=== PATIENT | male | born 1945 | race Caucasian/White ===

== ENCOUNTER 2018-05-04 07:26 | Inpatient (IN) ==
[2018-05-04 07:56] LABS: Bilirubin,Urine Moderate (Negative); Clarity,Urine Slightly Cloudy (Clear); Color,Urine Yellow (Yellw/Straw); Glucose,Urine (UA) Negative (Negative); Leukocyte Esterase,Urine Negative (Negative); Nitrite,Urine Negative (Negative); PH,Urine 5.5 (5.0-8.5); Specific Gravity,Urine 1.025 (1.002-1.035); Urobilinogen,Urine 0.2 mg/dL (Less than 2)
[2018-05-04] MEDS ORDERED: Morphine Inj 4 MG/ML Vial IV.PUSH ONE ×2 (07:59→09:42)
[2018-05-04 08:02] LABS: Collection Time,Urine 746 hours; Ictotest,Urine Positive (Negative); RBC,Urine 0-3 /hpf (0-3); Squamous Epithelial Cell,Urine 0-5 /hpf (0-5)
[2018-05-04 08:03] LABS: Amorphous Sediment,Urine Few /hpf; Mucus,Urine Few /lpf (Occasional)
--- NOTE | 2018-05-04 08:03 | ED ---
HPI General Chief complaint: Abdominal Pain Stated complaint: Abd Pain x [place] Time Seen by Provider: 05/04/18 07:51 Source: patient Mode of arrival: ambulatory Limitations: no limitations History of Present Illness HPI narrative: 72yo M with PMH of CAD s/p CABG here with c/o abdominal pain for 4 days. Said he went to PMD 2 days ago and he ordered an MRCP as outpatient that he has not gotten yet. +Nausea and vomiting. +Chill/sweat. +Dysuria today. +Dark urine. No abdominal surgery. Had gallstone and kidney stone before. Denies any fever, chest pain, sob, focal weakness or numbness. + Drinks 3 glasses of wine a day. Related Data Home Medications Medication Instructions Recorded Confirmed alprazolam 0.25 mg PO BID PRN 03/24/18 05/04/18 aspirin [Aspirin Low Dose] 81 mg PO DAILY 03/24/18 05/04/18 atorvastatin 80 mg PO DAILY 03/24/18 05/04/18 clopidogrel 75 mg PO DAILY 03/24/18 05/04/18 cyanocobalamin (vitamin B-12) 1,000 mcg PO DAILY 03/24/18 05/04/18 fluoxetine 20 mg PO DAILY 03/24/18 05/04/18 ramipril 2.5 mg PO DAILY 03/24/18 05/04/18 temazepam 0 03/24/18 trazodone 100 mg PO DAILY 03/24/18 05/04/18 hyoscyamine sulfate 0.125 mg PO QID 05/04/18 05/04/18 pantoprazole 40 mg PO DAILY 05/04/18 05/04/18 Previous Rx's Medication Instructions Recorded tramadol [Ultram] 50 mg PO Q4-6H #20 tab 03/24/18 Allergies Allergy/AdvReac Type Severity Reaction Status Date / Time No Known Allergies Allergy Verified 05/04/18 07:45 Review of Systems ROS: all other systems reviewed are negative [facility] Social History Social History Substance History: No History of Abuse Second Hand Smoke Exposure: No Smoking Status: Former smoker Tobacco Type: Cigarettes How Often Do You Have a Drink Containing Alcohol: 4 or more times a week Recent Travel in [facility] within the Last 8 Weeks: No Recent Out of Country Travel within the Last 8 Weeks: No Exam Narrative Exam Narrative: GENERAL: 72yo M in mild distress. SKIN: Focused skin assessment warm/dry. HEAD: Atraumatic. Normocephalic. EYES: Pupils equal and round. No scleral icterus. No injection or drainage. ENT: No nasal bleeding or discharge. Mucous membranes pink and moist. NECK: Trachea midline. No JVD. CARDIOVASCULAR: Regular rate and rhythm. No murmur appreciated. RESPIRATORY: No accessory muscle use. Clear to auscultation. Breath sounds equal bilaterally. GASTROINTESTINAL: Abdomen soft, +TTP RUQ, LUQ, RLQ, LLQ. No rebound tenderness or guarding. MUSCULOSKELETAL: No obvious deformities. No clubbing. No cyanosis. No edema. NEUROLOGICAL: Awake and alert. No obvious cranial nerve deficits. Motor grossly within normal limits in all extremities. Sensation intact. Normal speech. PSYCHIATRIC: Appropriate mood and affect; insight and judgment normal. Course Initial Documented Vital Signs Temperature 97.8 F 05/04/18 07:33 Pulse Rate 69 05/04/18 07:33 Respiratory Rate 18 05/04/18 07:33 Blood Pressure 112/73 05/04/18 07:33 Pulse Oximetry 98 05/04/18 07:33 Last Documented Vital Signs Temperature 97.8 F 05/04/18 08:01 Pulse Rate 69 05/04/18 08:01 Respiratory Rate 18 05/04/18 08:01 Blood Pressure 112/73 05/04/18 08:01 Pulse Oximetry 98 05/04/18 08:01 Critical Care Time Critical Care Time: Yes Total Critical Care Time: 45 Attestation: Aggregate critical care time was 45 minutes. Time to perform other separately billable procedures was not included in the critical care time. My time did not include minutes spent treating any other patients simultaneously or on activities that did not directly contribute to the patient's treatment. The services I provided to this patient were to treat and/or prevent clinically significant deterioration that could result in: cardiovascular collapse or . I provided critical care services requiring my management, as noted below: Chart data review, documentation time, medication orders and management, vital sign assessments/reviewing monitor data, ordering and reviewing lab tests, ordering and interpreting/reviewing x-rays and diagnostic studies, care of the patient and discussion of the patient with the admitting physicians. Medical Decision Making MDM Narrative Medical decision making narrative: 72yo M with abdominal pain and vomiting. Labs reviewed, no leukocytosis. H/H normal. BUN mildly elevated at 20. Lipase elevated at 9714. LFTs elevated. UA negative leukocyte. CT a/p showed stone in neck of gallbladder, dilated common bile duct up to 8mm, at least one tiny stone in distal common bile duct. +Pericholecystitc fluid and gallbladder wall thickening. Pt given zofran and morphine. Will need GI and likely ERCP. Reevaluated at bedside and said pain has improved after morphine but returning so ordered another dose of morphine. Discussed with Dr. Pereira who agrees and pt is to be transferred to [facility]. Discussed with Dr. Crooks and accepted to his service. Medical Screen Exam Complete: Yes Emergency Medical Condition: Yes Differential Diagnosis Differential Diagnosis: Acute pancreatitis vs. cholangitis vs. cholecystitis vs. nephrolithiasis vs. colitis Lab Data Result diagrams: 05/04/18 08:15 05/04/18 08:15 Lab Results 05/04/18 05/04/18 05/04/18 Range/Units 07:46 08:15 08:15 CBC w Diff Auto diff final WBC 7.2 (4.0-11.0) th/mm3 RBC 4.98 (4.50-5.90) mil/mm3 Hgb 16.1 (13.0-17.0) gm/dL Hct 45.6 (39.0-51.0) % MCV 91.6 (80.0-100.0) fL MCH 32.3 (27.0-34.0) pg MCHC 35.3 (32.0-36.0) % RDW 13.4 (11.6-17.2) % Plt Count 187 (150-450) th/mm3 MPV 8.0 (7.0-11.0) fL Neut % (Auto) 77.0 H (16.0-70.0) % Lymph % (Auto) 12.1 (9.0-44.0) % [place] % (Auto) 9.1 H (0.0-8.0) % Eos % (Auto) 0.7 (0.0-4.0) % Baso % (Auto) 1.1 (0.0-2.0) % Neut # (Auto) 5.4 (1.8-7.7) th/mm3 Lymph # (Auto) 0.9 L (1.0-4.8) th/mm3 [place] # (Auto) 0.7 (0.0-0.9) th/mm3 Eos # (Auto) 0.1 (0.0-0.4) th/mm3 Baso # (Auto) 0.1 (0.0-0.2) th/mm3 WBC Differential . Differential Comment . Sodium 138 (136-145) meq/L Potassium 4.0 (3.5-5.1) meq/L Chloride 105 (98-107) meq/L Carbon Dioxide 25.9 (21.0-32.0) meq/L Anion Gap 7 (5-15) meq/L BUN 20 H (7-18) mg/dL Creatinine 1.10 (0.60-1.30) mg/dL Estimated GFR 65 L (>89) mL/min Random Glucose 122 H (74-106) mg/dL Calcium 8.7 (8.5-10.1) mg/dL Total Bilirubin 3.0 H (0.2-1.0) mg/dL AST 108 H (15-37) U/L ALT 254 H (12-78) U/L Alkaline Phosphatase 135 H (45-117) U/L Total Protein 7.3 (6.4-8.2) g/dL Albumin 3.6 (3.4-5.0) g/dL Lipase 9714 H (73-393) U/L Ur Collection Type Clean catch Urine Color Yellow (Yellw/Straw) Urine Clarity Slightly cloudy (Clear) Urine pH 5.5 (5.0-8.5) Ur Specific [place] 1.025 (1.002-1.035) Urine Protein Trace (Neg-Trace) mg/dL Urine Glucose (UA) Negative (Negative) mg/dL Urine Ketones Trace H (Negative) mg/dL Urine Occult Blood Small H (Negative) Urine Nitrate Negative (Negative) Urine Bilirubin Moderate H (Negative) Urine Ictotest Positive H (Negative) Urine Urobilinogen 0.2 (Less than 2) mg/dL Ur Leukocyte Esterase Negative (Negative) Urine RBC 0-3 (0-3) /hpf Ur Squamous Epith Cells 0-5 (0-5) /hpf Amorphous Sediment Few H (None) /hpf Urine Mucus Few H (Occasional) /lpf Micro UA Comment Culture not ind Ur Microscopic Review Microscopic reviewed Urine Culture Comments Culture not ind Urine Collection Time 746 hours Urine Comment Serum Alcohol Less than 3 (0-5) mg/dL Imaging Data Radiologist's impression: Abdomen/Pelvis CT 05/04/18 07:59 CONCLUSION: 1. Cholecystitis. 2. Cholelithiasis. 3. Diffuse atherosclerosis with moderate stenosis of the right common iliac artery which is mildly prominent in caliber as well as occlusion of the right internal iliac artery at its origin. 4. Containing umbilical hernia. 5. Prominent prostate. 6. Choledocholithiasis. ECG Data EKG Prior to Arrival: No Attestation: I personally reviewed and interpreted this ECG as follows: Interpretation: Sinus bradycardia at 51bpm. Normal axis. [place] interval 166ms. No significant ST elevation or depression. Discharge Plan Discharge Disposition Patient Disposition: 30 Still Patient Discharge Details Diagnosis: Acute gallstone pancreatitis Physicians Team ED Provider: Rochelle Keene Primary Care Provider: Luis Fernando Faulkner Attending Provider: Becky Crooks Other Providers: Theresa Richardson Status ED Status: Admitted Patient
[2018-05-04 08:19] LABS: Baso # (Auto) 0.1 th/mm3 (0.0-0.2); Baso % (Auto) 1.1 % (0.0-2.0); Eos # (Auto) 0.1 th/mm3 (0.0-0.4); Eos % (Auto) 0.7 % (0.0-4.0); Hematocrit 45.6 % (39.0-51.0); Hemoglobin 16.1 gm/dL (13.0-17.0); Lymph # (Auto) 0.9 th/mm3 (1.0-4.8); Lymph % (Auto) 12.1 % (9.0-44.0); Mean Corpuscular HGB Conc 35.3 % (32.0-36.0); Mean Corpuscular Hemoglobin 32.3 pg (27.0-34.0); Mean Corpuscular Volume 91.6 fL (80.0-100.0); Mono # (Auto) 0.7 th/mm3 (0.0-0.9); Mono % (Auto) 9.1 % (0.0-8.0); Neut # (Auto) 5.4 th/mm3 (1.8-7.7); Platelet Count 187 th/mm3 (150-450); Red Blood Count 4.98 mil/mm3 (4.50-5.90); Red Cell Distribution Width 13.4 % (11.6-17.2); White Blood Count 7.2 th/mm3 (4.0-11.0)
[2018-05-04 08:30] LABS: Chloride 105 meq/L (98-107); Sodium 138 meq/L (136-145)
[2018-05-04 08:34] LABS: Calcium 8.7 mg/dL (8.5-10.1)
[2018-05-04 08:35] LABS: Albumin 3.6 g/dL (3.4-5.0); Anion Gap 7 meq/L (5-15); Blood Urea Nitrogen 20 mg/dL (7-18); Carbon Dioxide 25.9 meq/L (21.0-32.0); Glucose,Random 122 mg/dL (74-106)
[2018-05-04 08:37] LABS: Alanine Aminotransferase 254 U/L (12-78); Aspartate Aminotransferase 108 U/L (15-37)
[2018-05-04 08:38] LABS: Glomerular Filtration Rate 65 mL/min (>89)
[2018-05-04 08:39] LABS: Total Protein 7.3 g/dL (6.4-8.2)
[2018-05-04 08:40] LABS: Alkaline Phosphatase 135 U/L (45-117); Lipase 9714 U/L (73-393)
--- NOTE | 2018-05-04 09:24 | CT ---
EXAM DATE: 05/04/2018 9:15 AM EST AGE/SEX: 72 years / Male INDICATIONS: Abdomen pain CLINICAL DATA: This is the patient's initial encounter. Patient reports that signs and symptoms have been present for 4 - 6 days and indicates a pain score of 10/10. MEDICAL/SURGICAL HISTORY: Hypertension. . Open heart surgery ORAL CONTRAST: No oral contrast ingested. RADIATION DOSE: 13.53 CTDI (mGy) COMPARISON: [facility], CT ABDOMEN & PELVIS W/O CONTRAST, 01/30/2013. . TECHNIQUE: Multiple contiguous axial images were obtained through the abdomen and pelvis following b olus infusion of 95ML ml Omnipaque 350 (iohexol) nonionic water-soluble contrast as a single exam d ose. No oral contrast ingested. Using automated exposure control and adjustment of the mA and/or kV according to patient size, radiation dose was kept as low as reasonably achievable to obtain optimal diagnostic quality images. DICOM format image data is available electronically for review and compar mariana. FINDINGS: There are degenerative changes of the spine noted. Lung bases are clear. There is cardiomegaly and co ronary artery calcification. Cholelithiasis is identified. There is abnormal gallbladder wall thicken ing, mucosal enhancement and pericholecystic fluid with a stone in the neck of the gallbladder. The a ppearance is characteristic of cholecystitis. There is pericholecystic fat stranding. Liver, spleen, pancreas, adrenals and kidneys are unremarkable. Atherosclerotic plaquing of the aorta and iliac vess els are seen. There is 50% stenosis suspected of the right common iliac artery with ulcerated plaque seen, and mild aneurysmal dilatation up to 1.6 cm. There are internal iliac artery on the right is oc cluded at its origin with distal reconstitution suspected, diminutive. The prostate gland is prominen t measuring 5.3 x 4 cm in transverse and AP dimension. No evidence of bowel obstruction. Stomach, sma ll bowel, large bowel are normal. Small fat-containing umbilical hernia. Retroaortic left renal vein. The common bile duct measures up to 8 mm, and there is at least one tiny stone in the distal common bile duct best seen on coronal image 46 CONCLUSION: 1. Cholecystitis. 2. Cholelithiasis. 3. Diffuse atherosclerosis with moderate stenosis of the right common iliac artery which is mildly p rominent in caliber as well as occlusion of the right internal iliac artery at its origin. 4. Containing umbilical hernia. 5. Prominent prostate. 6. Choledocholithiasis. Electronically signed by: Mark Acuna MD 05/04/2018 9:23 AM EST
--- NOTE | 2018-05-04 09:56 | ECG ---
Date Performed: 05/04/2018 Time Performed: 08:09:45 PTAGE: 72 years EKG: SINUS BRADYCARDIA INCOMPLETE RIGHT BUNDLE BRANCH BLOCK BORDERLINE ECG Compared to prior alejandro ctrocardiogram, Incomplete right bundle branch block is present. PREVIOUS TRACING : 05/21/2016 19.31 DOCTOR: Mayur Becerra Interpretating Date/Time 05/04/2018 09:55:27
[2018-05-04] MEDS ORDERED: Bisacodyl 10 MG Supp RECTAL PRN (10:07)
[2018-05-04] MEDS ORDERED: Acetaminophen 325 MG Tablet PO PRN (10:07)
[2018-05-04] MEDS ORDERED: HYDROmorphone PF Inj 0.5 MG/0.5 ML Syringe IV.PUSH PRN (10:11)
[2018-05-04] MEDS ORDERED: Sod Chloride 0.9% Inj 1,000 ML IV.SIG SCH (10:15)
[2018-05-04] MEDS: Enoxaparin Inj 40 MG/0.4 ML Syringe SQ SCH (11:42)
--- NOTE | 2018-05-04 12:44 | P.HP ---
History of Present Illness Primary Care Physician: Luis Fernando Faulkner MD Chief Complaint: Abdominal pain History of Present Illness: This is a pleasant 72 y/o Male with CAD status post CABG x 6, who came to ER at [facility] with Abdominal pain, for 4 days, Said he went to see his PCP 2 days ago and he ordered an MRCP as outpatient that he has not gotten yet. +Nausea and vomiting. +Chill/sweat. +Dysuria today. +Dark urine. No abdominal surgery. Had gallstone and kidney stone before. Denies any fever, chest pain, sob, focal weakness or numbness. +Drinks 3 glasses of wine a day. as We know he has Hypertension, Hyperlipidemia Vitamin B 12 deficiency, Anxiety, depression, Alcohol abuse. No leukocytosis, Lipase elevated 9714, LFTs elevated, UA negative, CT a/p showed stone in neck of gallbladder, dilated common bile duct up to 8mm, at least one tiny stone in distal common bile duct. +Pericholecystitc fluid and gallbladder wall thickening. Doctor Dylan accepted the patient for this facility to perform ERCP. Inpatient Certification: I certify that the inpatient services were ordered in accordance with Medicare regulations governing the order. This includes certification that hospital inpatient services are reasonable and necessary and in the case of services not specified as inpatient-only under 42 CFR 419.22(n), that they are appropriately provided as inpatient services in accordance to with the 2-midnight benchmark under 43 CFR 412.3(e) Estimated Total Length of Stay (Days): 3 Plans for Post Hospital Care: Not yet determined Review of Systems All other systems reviewed negative except as stated in [facility] [place] History History Provided By: Patient - Medical History Medical History: Medical History (Last Updated 05/04/18 @ 12:40 by Luisito Owens MD) Vitamin B12 deficiency History of high cholesterol Hx of primary hypertension - Surgical History Surgical History: Surgical History (Last Reviewed 05/04/18 @ 12:19 by Selene Soriano) History of open heart surgery - Family History Family History: Family History (Last Updated 05/04/18 @ 16:31 by Luisito Owens MD) Father Family history of acute myocardial infarction - Tobacco History Second Hand Smoke Exposure: No Tobacco Use In Past 30 Days: No Smoking Status: Former smoker Tobacco Type: Cigarettes - Alcohol History How Often Do You Have a Drink Containing Alcohol: 4 or more times a week - Substance Use History Substance History: No History of Abuse - Travel History Recent Travel in the [place] Within the Last 8 Weeks: No Recent Travel Out of the Country Within the Last 8 Weeks: No - Immunization History Tetanus Immunization: Never Vaccinated Hx Influenza Vaccine This Season: Yes Medications and Allergies Active Medications: Active Medications Acetaminophen (Tylenol) 650 mg PO Q4H PRN PRN Reason: Headache, fever, pain 1-4 Al Hydroxide/Mg Hydroxide (Milk Of Magnesia Liq) 30 ml PO Q12H PRN PRN Reason: Mild Constipation Bisacodyl (Dulcolax Supp) 10 mg RECTAL DAILY PRN PRN Reason: SEVERE CONSITIPATION Enoxaparin Sodium (Lovenox Inj) 40 mg SQ Q24H CANDIDO Last Admin: 05/04/18 11:42 Dose: 40 mg Hydromorphone HCl (Dilaudid Pf Inj) 0.5 mg IV.PUSH Q4H PRN PRN Reason: Pain 5-10 Sodium Chloride (Ns Inj) 1,000 mls @ 200 mls/hr IV.CONT .Q5H CANDIDO Stop: 05/05/18 10:59 Lactulose (Lactulose Liq) 30 ml PO DAILY PRN PRN Reason: SEVERE CONSITIPATION Sennosides (Senokot) 17.2 mg PO Q12H PRN PRN Reason: Moderate Constipation Allergies Allergy/AdvReac Type Severity Reaction Status Date / Time No Known Allergies Allergy Verified 05/04/18 07:45 Home Medications Medication Instructions Recorded Confirmed Type alprazolam 0.25 mg PO BID PRN 03/24/18 05/04/18 History aspirin [Aspirin Low Dose] 81 mg PO DAILY 03/24/18 05/04/18 History atorvastatin 80 mg PO DAILY 03/24/18 05/04/18 History clopidogrel 75 mg PO DAILY 03/24/18 05/04/18 History cyanocobalamin (vitamin B-12) 1,000 mcg PO DAILY 03/24/18 05/04/18 History fluoxetine 20 mg PO DAILY 03/24/18 05/04/18 History ramipril 2.5 mg PO DAILY 03/24/18 05/04/18 History temazepam 0 03/24/18 History trazodone 100 mg PO DAILY 03/24/18 05/04/18 History hyoscyamine sulfate 0.125 mg PO QID 05/04/18 05/04/18 History pantoprazole 40 mg PO DAILY 05/04/18 05/04/18 History Exam Vital signs: Vital Signs 05/04/18 07:33 05/04/18 08:01 05/04/18 11:40 Temperature 97.8 F 97.8 F Pulse Rate 69 69 50 L Respiratory Rate 18 18 16 Blood Pressure 112/73 112/73 132/65 Pulse Oximetry 98 98 96 Intake & Output 05/03/18 05/04/18 05/04/18 18:59 06:59 18:59 Weight 82.1 kg Other: Weight On Admission 82.1 kg Narrative: GENERAL: 72yo M in mild distress. SKIN: Focused skin assessment warm/dry. HEAD: Atraumatic. Normocephalic. EYES: Pupils equal and round. No scleral icterus. No injection or drainage. ENT: No nasal bleeding or discharge. Mucous membranes pink and moist. NECK: Trachea midline. No JVD. CARDIOVASCULAR: Regular rate and rhythm. No murmur appreciated. RESPIRATORY: No accessory muscle use. Clear to auscultation. Breath sounds equal bilaterally. GASTROINTESTINAL: Abdomen soft, +TTP RUQ, LUQ, RLQ, LLQ. No rebound tenderness or guarding. MUSCULOSKELETAL: No obvious deformities. No clubbing. No cyanosis. No edema. NEUROLOGICAL: Awake and alert. No obvious cranial nerve deficits. Motor grossly within normal limits in all extremities. Sensation intact. Normal speech. PSYCHIATRIC: Appropriate mood and affect; insight and judgment normal. Results - Labs CBC & Chem 7: 05/04/18 08:15 05/04/18 08:15 Labs: Laboratory Results - last 24 hr 05/04/18 05/04/18 05/04/18 07:46 08:15 08:15 CBC w Diff Auto diff final WBC 7.2 RBC 4.98 Hgb 16.1 Hct 45.6 MCV 91.6 MCH 32.3 MCHC 35.3 RDW 13.4 Plt Count 187 MPV 8.0 Neut % (Auto) 77.0 H Lymph % (Auto) 12.1 [place] % (Auto) 9.1 H Eos % (Auto) 0.7 Baso % (Auto) 1.1 Neut # (Auto) 5.4 Lymph # (Auto) 0.9 L [place] # (Auto) 0.7 Eos # (Auto) 0.1 Baso # (Auto) 0.1 WBC Differential . Differential Comment . Sodium 138 Potassium 4.0 Chloride 105 Carbon Dioxide 25.9 Anion Gap 7 BUN 20 H Creatinine 1.10 Estimated GFR 65 L Random Glucose 122 H Calcium 8.7 Total Bilirubin 3.0 H AST 108 H ALT 254 H Alkaline Phosphatase 135 H Total Protein 7.3 Albumin 3.6 Lipase 9714 H Ur Collection Type Clean catch Urine Color Yellow Urine Clarity Slightly cloudy Urine pH 5.5 Ur Specific [place] 1.025 Urine Protein Trace Urine Glucose (UA) Negative Urine Ketones Trace H Urine Occult Blood Small H Urine Nitrate Negative Urine Bilirubin Moderate H Urine Ictotest Positive H Urine Urobilinogen 0.2 Ur Leukocyte Esterase Negative Urine RBC 0-3 Ur Squamous Epith Cells 0-5 Amorphous Sediment Few H Urine Mucus Few H Micro UA Comment Culture not ind Ur Microscopic Review Microscopic reviewed Urine Culture Comments Culture not ind Urine Collection Time 746 Urine Comment Serum Alcohol Less than 3 - Imaging Impressions Abdomen/Pelvis CT 05/04/18 07:59 CONCLUSION: 1. Cholecystitis. 2. Cholelithiasis. 3. Diffuse atherosclerosis with moderate stenosis of the right common iliac artery which is mildly prominent in caliber as well as occlusion of the right internal iliac artery at its origin. 4. Containing umbilical hernia. 5. Prominent prostate. 6. Choledocholithiasis. Caprini VTE Risk Assessment Caprini VTE Risk Assessment: Moderate/High Risk (score >= 2) Caprini Risk Assessment Model: Point Value = 1 Point Value = 2 Point Value = 3 Point Value = 5 Age 41-60 Minor surgery BMI > 25 kg/m2 Swollen legs Varicose veins or History of unexplained or recurrent spontaneous Oral contraceptives or hormone replacement Sepsis (< 1 month) Serious lung disease, including pneumonia (< 1 month) Abnormal pulmonary function Acute myocardial infarction Congestive heart failure (< 1 month) History of inflammatory bowel disease Medical patient at bed rest Age 61-74 Arthroscopic surgery Major open surgery (> 45 min) Laparoscopic surgery (> 45 min) Malignancy Confined to bed (> 72 hours) Immobilizing plaster cast Central venous access Age >= 75 History of VTE Family history of VTE Factor V Leiden Prothrombin [id number] Lupus anticoagulant Anticardiolipin antibodies Elevated serum homocysteine Heparin-induced thrombocytopenia Other congenital or acquired thrombophilia Stroke (< 1 month) Elective arthroplasty Hip, pelvis, or leg fracture Acute spinal cord injury (< 1 month) Prophylaxis Regimen: Total Risk Factor Score Risk Level Prophylaxis Regimen 0-1 Low Early ambulation 2 Moderate Order ONE of the following: *Sequential Compression Device (SCD) *Heparin 5000 units SQ BID 3-4 Higher Order ONE of the following medications: *Heparin 5000 units SQ TID *Enoxaparin/Lovenox 40 mg SQ daily (WT < 150 kg, CrCl > 30 mL/min) *Enoxaparin/Lovenox 30 mg SQ daily (WT < 150 kg, CrCl > 10-29 mL/min) *Enoxaparin/Lovenox 30 mg SQ BID (WT < 150 kg, CrCl > 30 mL/min) AND/OR *Sequential Compression Device (SCD) 5 or more Highest Order ONE of the following medications: *Heparin 5000 units SQ TID (Preferred with Epidurals) *Enoxaparin/Lovenox 40 mg SQ daily (WT < 150 kg, CrCl > 30 mL/min) *Enoxaparin/Lovenox 30 mg SQ daily (WT < 150 kg, CrCl > 10-29 mL/min) *Enoxaparin/Lovenox 30 mg SQ BID (WT < 150 kg, CrCl > 30 mL/min) AND *Sequential Compression Device (SCD) Assessment and Plan - Plan 1. Acute gallstone pancreatitis to continue IV fluids discussed with GI specialist will get MRCP and if any findings will proceed with ERCP tomorrow. 2. Coronary artery disease, status post CABG x 6/PCI with stenting in the past stable continue Home medicines 3. Hypertension controlled continue home medicines 4. Hyperlipidemia to continue Home medicines 5. Anxiety disorder/Depression to continue anxiolytics 6. Vitamin B 12 deficiency by history 7. Alcohol abuse no history of withdrawal CIWA protocol Prophylaxis. SCDs. Code Status: Full code. Discussed Condition With: Patient and Nurse. Discharge Planning: Expected in one to two days.
[2018-05-04] MEDS: HYDROmorphone PF Inj 1 MG/ML Ampul IV.PUSH PRN (15:08)
--- NOTE | 2018-05-04 15:57 | P.CONGI ---
History of Present Illness Consult reason: Abdominal pain, cholelithiasis Chief complaint: Choledocholithiasis, acute pancreatitis History of Present Illness: This is a 72-year-old male who initially came to [place] for evaluation of mid abdominal pain which radiated across abdomen to back. Onset of symptoms was 4 days ago with associated nausea and vomiting decreased appetite and uncontrolled pain 10 out of a 10. Patient was positive for some chills/fever, but denied any obvious hematemesis or rectal bleeding. Currently patient notes history of GERG and dyspepsia in the past but none recently. Labs reviewed which showed bilirubin 3, AST 108, ALT 254, alkaline phosphatase 135, hemoglobin 16.1, and white count 7.2 and lipase level 9714 consistent with pancreatitis. Initial CT scan showed cholecystitis, cholelithiasis, choledocholithiasis moderate stenosis of the right common iliac artery and umbilical hernia, dilated common bile duct up to 8 mm and at least one tiny stone seen in the distal common bile duct. Patient had positive family history of grandfather with colon cancer many years ago, no previous colonoscopy but did have endoscopy approximately 14 years ago and was treated for GERD then. Strongly neurology was consulted to see patient and transferred him to [place] for further observation and plan of care. [facility] - History History Provided By: Patient - Medical History Medical History: Medical History (Last Updated 05/04/18 @ 12:40 by Luisito Owens MD) Vitamin B12 deficiency History of high cholesterol Hx of primary hypertension - Surgical History Surgical History: Surgical History (Last Reviewed 05/04/18 @ 12:19 by Selene Soriano) History of open heart surgery - Tobacco History Second Hand Smoke Exposure: No Tobacco Use In Past 30 Days: No Smoking Status: Former smoker Tobacco Type: Cigarettes - Alcohol History How Often Do You Have a Drink Containing Alcohol: 4 or more times a week - Substance Use History Substance History: No History of Abuse - Travel History Recent Travel in the [place] Within the Last 8 Weeks: No Recent Travel Out of the Country Within the Last 8 Weeks: No - Immunization History Tetanus Immunization: Never Vaccinated Hx Influenza Vaccine This Season: Yes Medications and Allergies Active Medications: Active Medications Acetaminophen (Tylenol) 650 mg PO Q4H PRN PRN Reason: Headache, fever, pain 1-4 Al Hydroxide/Mg Hydroxide (Milk Of Magnesia Liq) 30 ml PO Q12H PRN PRN Reason: Mild Constipation Bisacodyl (Dulcolax Supp) 10 mg RECTAL DAILY PRN PRN Reason: SEVERE CONSITIPATION Enoxaparin Sodium (Lovenox Inj) 40 mg SQ Q24H [facility] Last Admin: 05/04/18 11:42 Dose: 40 mg Hydromorphone HCl (Dilaudid Pf Inj) 0.5 mg IV.PUSH Q4H PRN PRN Reason: Pain 5-10 Last Admin: 05/04/18 15:08 Dose: 0.5 mg Sodium Chloride (Ns Inj) 1,000 mls @ 100 mls/hr IV.CONT .Q10H [facility] Stop: 05/05/18 10:59 Lactulose (Lactulose Liq) 30 ml PO DAILY PRN PRN Reason: SEVERE CONSITIPATION Sennosides (Senokot) 17.2 mg PO Q12H PRN PRN Reason: Moderate Constipation Allergies Allergy/AdvReac Type Severity Reaction Status Date / Time No Known Allergies Allergy Verified 05/04/18 07:45 Home Medications Medication Instructions Recorded Confirmed Type alprazolam 0.25 mg PO BID PRN 03/24/18 05/04/18 History aspirin [Aspirin Low Dose] 81 mg PO DAILY 03/24/18 05/04/18 History atorvastatin 80 mg PO DAILY 03/24/18 05/04/18 History clopidogrel 75 mg PO DAILY 03/24/18 05/04/18 History cyanocobalamin (vitamin B-12) 1,000 mcg PO DAILY 03/24/18 05/04/18 History fluoxetine 20 mg PO DAILY 03/24/18 05/04/18 History ramipril 2.5 mg PO DAILY 03/24/18 05/04/18 History temazepam 0 03/24/18 History trazodone 100 mg PO DAILY 03/24/18 05/04/18 History hyoscyamine sulfate 0.125 mg PO QID 05/04/18 05/04/18 History pantoprazole 40 mg PO DAILY 05/04/18 05/04/18 History Exam Vital signs: Vital Signs 05/04/18 07:33 05/04/18 08:01 05/04/18 11:40 Temperature 97.8 F 97.8 F Pulse Rate 69 69 50 L Respiratory Rate 18 18 16 Blood Pressure 112/73 112/73 132/65 Pulse Oximetry 98 98 96 05/04/18 14:25 Temperature 98.2 F Pulse Rate 56 L Respiratory Rate 17 Blood Pressure 143/65 H Pulse Oximetry 98 Intake & Output 05/03/18 05/04/18 05/04/18 18:59 06:59 18:59 Weight 82.1 kg Other: Weight On Admission 82.1 kg Results - Labs CBC & Chem 7: 05/04/18 08:15 05/04/18 08:15 Labs: Laboratory Results - last 24 hr 05/04/18 05/04/18 05/04/18 07:46 08:15 08:15 CBC w Diff Auto diff final WBC 7.2 RBC 4.98 Hgb 16.1 Hct 45.6 MCV 91.6 MCH 32.3 MCHC 35.3 RDW 13.4 Plt Count 187 MPV 8.0 Neut % (Auto) 77.0 H Lymph % (Auto) 12.1 [place] % (Auto) 9.1 H Eos % (Auto) 0.7 Baso % (Auto) 1.1 Neut # (Auto) 5.4 Lymph # (Auto) 0.9 L [place] # (Auto) 0.7 Eos # (Auto) 0.1 Baso # (Auto) 0.1 WBC Differential . Differential Comment . Sodium 138 Potassium 4.0 Chloride 105 Carbon Dioxide 25.9 Anion Gap 7 BUN 20 H Creatinine 1.10 Estimated GFR 65 L Random Glucose 122 H Calcium 8.7 Total Bilirubin 3.0 H AST 108 H ALT 254 H Alkaline Phosphatase 135 H Total Protein 7.3 Albumin 3.6 Lipase 9714 H Ur Collection Type Clean catch Urine Color Yellow Urine Clarity Slightly cloudy Urine pH 5.5 Ur Specific [place] 1.025 Urine Protein Trace Urine Glucose (UA) Negative Urine Ketones Trace H Urine Occult Blood Small H Urine Nitrate Negative Urine Bilirubin Moderate H Urine Ictotest Positive H Urine Urobilinogen 0.2 Ur Leukocyte Esterase Negative Urine RBC 0-3 Ur Squamous Epith Cells 0-5 Amorphous Sediment Few H Urine Mucus Few H Micro UA Comment Culture not ind Ur Microscopic Review Microscopic reviewed Urine Culture Comments Culture not ind Urine Collection Time 746 Urine Comment Serum Alcohol Less than 3 - Imaging Impressions Abdomen/Pelvis CT 05/04/18 07:59 CONCLUSION: 1. Cholecystitis. 2. Cholelithiasis. 3. Diffuse atherosclerosis with moderate stenosis of the right common iliac artery which is mildly prominent in caliber as well as occlusion of the right internal iliac artery at its origin. 4. Containing umbilical hernia. 5. Prominent prostate. 6. Choledocholithiasis. Assessment and Plan - Plan 72-year-old male who initially came to [place] for evaluation of mid abdominal pain which radiated across abdomen to back. Onset of symptoms was 4 days ago with associated nausea and vomiting decreased appetite and uncontrolled pain 10 out of a 10. Patient was positive for some chills/fever, but denied any obvious hematemesis or rectal bleeding. Currently patient notes history of GERG and dyspepsia in the past but none recently. Labs reviewed which showed bilirubin 3, AST 108, ALT 254, alkaline phosphatase 135, hemoglobin 16.1, and white count 7.2 and lipase level 9714 consistent with pancreatitis. Initial CT scan showed cholecystitis, cholelithiasis, choledocholithiasis, moderate stenosis of the right common iliac artery and umbilical hernia, dilated common bile duct up to 8 mm and at least one tiny stone seen in the distal common bile duct. Patient had positive family history of grandfather with colon cancer many years ago, no previous colonoscopy but did have endoscopy approximately 14 years ago and was treated for GERD then. Strongly neurology was consulted to see patient and transferred him to [place] for further observation and plan of care. Cholecystitis, compatible with abdominal pain right mid and left quadrants radiating to the back region Choledocholithiasis also associated with #1 and abdominal pain, common bile duct dilatation 8 mm with stones seen History of GERD, currently denies any dyspepsia or dysphasia, had EGD approximately 14 years ago and was initially treated for GERD but no meds now, positive family history grandfather colon cancer, no previous colonoscopy Nausea vomiting decreased appetite over the last 4 days consistent with #1 and # 2 Hyperbilirubinemia/transaminitis, could be related to gallbladder disease versus hepatocellular disease patient is a daily alcohol consumption Plan Diet, clear liquids for now as tolerated per attending MRCP today, based on findings plan for Consent for ERCP in a.m. Bowel regimen as needed, pain management per attending Monitor labs, monitor lipase level AFP level Further recommendations to follow Patient was seen per myself and Dr. Kelley, note was written on his behalf
[2018-05-04] MEDS: Sod Chloride 0.9% Inj 1,000 ML IV.CONT SCH (16:18)
--- NOTE | 2018-05-04 18:54 | MR ---
EXAM DATE: 05/04/2018 5:45 PM EST AGE/SEX: 72 years / Male INDICATIONS: Cholelithiasis. CLINICAL DATA: This is the patient's initial encounter. Patient reports that signs and symptoms have been present for 1 day and indicates a pain score of 0/10. MEDICAL/SURGICAL HISTORY: Hypertension. Hypercholesterolemia. CABG. Coronary artery stent. COMPARISON: No prior exams available for comparison. TECHNIQUE: Multiplanar, multisequence images of the abdomen were obtained without contrast including dedicated cholangiographic images. FINDINGS: Common bile duct measures about 8 mm in diameter. There is a 3 mm stone in the distal common bile oseas t and probably 2 additional tiny gallstones also in the distal common bile duct. These are best seen on the coronal images #16 of 30 and axial T2 images #22 of 32. There are numerous tiny gallstones within the gallbladder. There is pericholecystic fluid present No acute findings in the liver, spleen, adrenals, kidneys or pancreas. No free fluid. Pancreatic duct has normal caliber. There is dependent atelectasis in the lungs and trace fluid. CONCLUSION: 1. Several tiny gallstones present in the distal common bile duct measuring up to about 3 mm in diam eter. 2. Numerous gallstones with pericholecystic fluid present. This is nonspecific but can be associated with cholecystitis. 3. Dependent atelectasis in the lungs with trace pleural fluid. Electronically signed by: Domingo Barnhart MD 05/04/2018 6:53 PM EST
[2018-05-05] MEDS: Sod Chloride 0.9% Inj 1,000 ML IV.CONT SCH ×2 (01:00→07:48)
[2018-05-05] MEDS: HYDROmorphone PF Inj 1 MG/ML Ampul IV.PUSH PRN (03:42)
[2018-05-05 06:16] LABS: Baso % (Auto) 0.3 % (0.0-2.0); Eos % (Auto) 0.7 % (0.0-4.0); Hematocrit 40.3 % (39.0-51.0); Hemoglobin 14.5 gm/dL (13.0-17.0); Lymph # (Auto) 0.8 th/mm3 (1.0-4.8); Lymph % (Auto) 10.8 % (9.0-44.0); Mean Corpuscular Hemoglobin 33.2 pg (27.0-34.0); Mean Platelet Volume 8.2 fL (7.0-11.0); Mono # (Auto) 0.8 th/mm3 (0.0-0.9); Mono % (Auto) 11.6 % (0.0-8.0); Neut # (Auto) 5.4 th/mm3 (1.8-7.7); Neut % (Auto) 76.6 % (16.0-70.0); Platelet Count 148 th/mm3 (150-450); Red Blood Count 4.38 mil/mm3 (4.50-5.90); Red Cell Distribution Width 13.5 % (11.6-17.2); White Blood Count 7.1 th/mm3 (4.0-11.0)
[2018-05-05 06:44] LABS: Albumin 3.5 g/dL (3.4-5.0); Anion Gap 8 meq/L (5-15); Aspartate Aminotransferase 55 U/L (15-37); Blood Urea Nitrogen 16 mg/dL (7-18); Calcium 8.2 mg/dL (8.5-10.1); Carbon Dioxide 28.5 meq/L (21.0-32.0); Chloride 105 meq/L (98-107); Glomerular Filtration Rate Greater Than 89 mL/min (>89); Glucose,Random 94 mg/dL (74-106); Potassium 3.3 meq/L (3.5-5.1); Sodium 141 meq/L (136-145)
[2018-05-05 06:48] LABS: Alanine Aminotransferase 166 U/L (12-78); Alkaline Phosphatase 107 U/L (45-117); Total Protein 6.6 g/dL (6.4-8.2)
--- NOTE | 2018-05-05 10:26 | P.PNIM ---
Subjective Interval history: Patient seen and examined this morning. Afebrile vital signs stable. Patient reports that his pain is tolerable at this time. He understands again plan for the day is to have performed an ERCP. He is in good spirits and hopeful that this procedure will go well for him. Patient has no complaints to report at this time Physical Exam Vital signs: Vital Signs 05/04/18 11:40 05/04/18 14:25 05/04/18 16:15 Temperature 98.2 F 97.6 F Pulse Rate 50 L 56 L 58 L Respiratory Rate 16 17 18 Blood Pressure 132/65 143/65 H 139/74 Pulse Oximetry 96 98 94 L 05/04/18 20:00 05/04/18 20:41 05/05/18 00:00 Temperature 98.3 F 98.2 F Pulse Rate 57 L 59 L Respiratory Rate 18 18 18 Blood Pressure 132/69 132/62 Pulse Oximetry 95 95 05/05/18 01:30 05/05/18 04:00 05/05/18 08:00 Temperature 97.7 F 98.2 F Pulse Rate 52 L 52 L Respiratory Rate 17 18 16 Blood Pressure 133/64 122/58 L Pulse Oximetry 96 92 L Intake & Output 05/04/18 05/05/18 05/05/18 18:59 06:59 18:59 Intake Total 1120 / 1120 Balance 1120 / 1120 Weight 82.1 kg 85 kg Intake: Oral 1120 / 1120 Other: # Voids 2 5 Date of Last Bowel Movement 05/01/18 05/01/18 05/01/18 Weight On Admission 82.1 kg Narrative: GEN: Well-developed, well-nourished patient. No acute distress. CV: Regular rate and rhythm without obvious murmurs LUNGS: Clear to auscultation bilaterally. Normal respiratory effort. No wheezes , rales, rhonchi. GI: Soft, nontender, nondistended. No palpable masses. Bowel sounds WNL. EXT: No edema. NEURO/PSYCH: Afocal. Awake, alert, and oriented x3. Appropriate insight and judgment. Results - Labs CBC & Chem 7: 05/05/18 05:11 05/05/18 05:11 Laboratory Results - last 24 hr 05/04/18 05/05/18 05/05/18 18:30 05:11 05:11 WBC 7.1 RBC 4.38 L Hgb 14.5 Hct 40.3 MCV 92.0 MCH 33.2 MCHC 36.0 RDW 13.5 Plt Count 148 L MPV 8.2 Prelim Diff (Auto) Slide review pending Neut % (Auto) 76.6 H Lymph % (Auto) 10.8 [place] % (Auto) 11.6 H Eos % (Auto) 0.7 Baso % (Auto) 0.3 Neut # (Auto) 5.4 Lymph # (Auto) 0.8 L [place] # (Auto) 0.8 Eos # (Auto) 0.0 Baso # (Auto) 0.0 WBC Differential . Diff Scan Auto diff confirmed Differential Comment . Sodium 141 Potassium 3.3 L Chloride 105 Carbon Dioxide 28.5 Anion Gap 8 BUN 16 Creatinine 0.75 Estimated GFR Greater than 89 Random Glucose 94 Calcium 8.2 L Total Bilirubin 2.0 H AST 55 H ALT 166 H Alkaline Phosphatase 107 Total Protein 6.6 D Albumin 3.5 Tumor Marker AFP 3.5 - Imaging Impressions Cholangiopancreatography MRI 05/04/18 00:00 CONCLUSION: 1. Several tiny gallstones present in the distal common bile duct measuring up to about 3 mm in diameter. 2. Numerous gallstones with pericholecystic fluid present. This is nonspecific but can be associated with cholecystitis. 3. Dependent atelectasis in the lungs with trace pleural fluid. Assessment and Plan - Assessment (1) Acute gallstone pancreatitis Code(s): K85.10 - Biliary acute pancreatitis without necrosis or infection Status: Acute - Plan 1. Acute gallstone pancreatitis to continue IV fluids discussed with GI specialist status post MRCP Patient is pending ERCP at this time. With likely anticipated cholecystectomy to be performed as an outpatient 2. Coronary artery disease, status post CABG x 6/PCI with stenting in the past stable continue Home medicines 3. Hypertension controlled continue home medicines 4. Hyperlipidemia to continue Home medicines 5. Anxiety disorder/Depression to continue anxiolytics 6. Vitamin B 12 deficiency by history 7. Alcohol abuse no history of withdrawal CIWA protocol Prophylaxis. SCDs. Code Status: Full code Discussed Condition With: checking clerk Planning: Expected over the next couple days pending GI clearance
[2018-05-05] MEDS ORDERED: Ampicillin/Sulbactam Inj 3 GM in Sodium Chloride 0.9% Inj 100 ML IV.SIG ONE (11:00)
[2018-05-05] MEDS ORDERED: fentaNYL Citrate Inj 100 MCG/2 ML Ampul ONE (12:26)
[2018-05-05] MEDS ORDERED: Phenylephrine/NS 1000 MCG/10ML Syringe IV.PUSH ONE (12:39)
[2018-05-05] MEDS ORDERED: Succinylcholine Inj 100 MG/5 ML Syringe IV.PUSH ONE (12:39)
[2018-05-05] MEDS ORDERED: Lidocaine PF 1% Inj 5 ML Syringe OTHER ONE (12:39)
--- NOTE | 2018-05-05 13:49 | FL ---
EXAM DATE: 05/05/2018 1:45 PM EST AGE/SEX: 72 years / Male INDICATIONS: Obstruction, sphincterectomy and stone removal. CLINICAL DATA: This is the patient's initial encounter. Patient reports that signs and symptoms have been present for 1 day and indicates a pain score of Nonresponsive. MEDICAL/SURGICAL HISTORY: Non-responsive. Non-responsive. COMPARISON: [facility], MRCP W/O CONTRAST, 05/04/2018. . FINDINGS: An ERCP was performed by the ordering physician. The images demonstrate filling defects in the dista l common bile duct were noted characteristic of choledocholithiasis. CONCLUSION: Choledocholithiasis. Electronically signed by: Mark Acuna MD 05/05/2018 1:48 PM EST
[2018-05-05] MEDS: Enoxaparin Inj 40 MG/0.4 ML Syringe SQ SCH (14:00)
[2018-05-06 08:41] LABS: Baso % (Auto) 0.1 % (0.0-2.0); Eos % (Auto) 0.4 % (0.0-4.0); Hematocrit 37.9 % (39.0-51.0); Hemoglobin 13.6 gm/dL (13.0-17.0); Lymph # (Auto) 0.7 th/mm3 (1.0-4.8); Lymph % (Auto) 11.2 % (9.0-44.0); Mean Corpuscular HGB Conc 35.9 % (32.0-36.0); Mean Corpuscular Hemoglobin 33.4 pg (27.0-34.0); Mean Platelet Volume 8.2 fL (7.0-11.0); Mono # (Auto) 0.8 th/mm3 (0.0-0.9); Mono % (Auto) 11.5 % (0.0-8.0); Neut # (Auto) 5.1 th/mm3 (1.8-7.7); Neut % (Auto) 76.8 % (16.0-70.0); Platelet Count 149 th/mm3 (150-450); Red Blood Count 4.07 mil/mm3 (4.50-5.90); Red Cell Distribution Width 13.7 % (11.6-17.2); White Blood Count 6.7 th/mm3 (4.0-11.0)
[2018-05-06 09:05] LABS: Albumin 3.1 g/dL (3.4-5.0); Anion Gap 8 meq/L (5-15); Aspartate Aminotransferase 34 U/L (15-37); Blood Urea Nitrogen 12 mg/dL (7-18); Calcium 8.4 mg/dL (8.5-10.1); Carbon Dioxide 27.7 meq/L (21.0-32.0); Chloride 108 meq/L (98-107); Glomerular Filtration Rate Greater Than 89 mL/min (>89); Glucose,Random 120 mg/dL (74-106); Potassium 3.7 meq/L (3.5-5.1); Sodium 144 meq/L (136-145)
[2018-05-06 09:07] LABS: Alanine Aminotransferase 114 U/L (12-78)
[2018-05-06 09:08] LABS: Alkaline Phosphatase 92 U/L (45-117); Total Protein 6.3 g/dL (6.4-8.2)
[2018-05-06 09:16] VITALS: RESP 18
[2018-05-06] MEDS ORDERED: ALPRAZolam 0.25 MG Tablet PO PRN (09:29)
[2018-05-06] MEDS ORDERED: FLUoxetine 20 MG Capsule PO SCH (09:30)
[2018-05-06] MEDS ORDERED: Ramipril 2.5 MG Capsule PO SCH (09:30)
--- NOTE | 2018-05-06 09:38 | P.PN ---
Subjective Interval history: Follow up for acute gallstone pancreatitis. The patient is s/p ERCP yesterday. He reports feeling much better and wants to go home. He is tolerating liquid diet, wants to try more solid foods. Denies any abdominal pain, nausea/vomiting , or diarrhea. Had a BM yesterday. Denies fevers/chills. He is requesting his home meds be restarted. He has no other medical complaints at this time. Physical Exam Vital signs: Vital Signs 05/05/18 11:48 05/05/18 12:00 05/05/18 13:37 Temperature 98.8 F 98.8 F 98.6 F Pulse Rate 53 L 53 L 62 Respiratory Rate 16 16 16 Blood Pressure 136/63 136/83 145/75 H Pulse Oximetry 97 97 05/05/18 13:45 05/05/18 14:00 05/05/18 16:00 Temperature 98.7 F Pulse Rate 56 L 56 L 58 L Respiratory Rate 16 16 16 Blood Pressure 125/60 151/72 H 152/67 H Pulse Oximetry 95 95 96 05/05/18 19:07 05/06/18 00:15 05/06/18 01:00 Temperature 98.7 F 98.3 F Pulse Rate 61 43 L Respiratory Rate 20 18 17 Blood Pressure 124/64 115/55 L Pulse Oximetry 95 95 05/06/18 03:45 05/06/18 08:00 Temperature 97.7 F 98.1 F Pulse Rate 43 L 43 L Respiratory Rate 19 18 Blood Pressure 122/57 L 118/58 L Pulse Oximetry 99 99 Intake & Output 05/05/18 05/06/18 05/06/18 18:59 06:59 18:59 Intake Total 2039 1440 / 1440 Balance 2039 1440 / 1440 Weight 86.7 kg Intake: IV 100 / 100 Unasyn Inj 3 GM In NS Inj 100 100 / 100 ML @ 200 mls/hr IV.SIG ONCE ONE Rx#:[id number] Oral 940 / 940 1440 / 1440 Anesthesia Amount 1000 / 1000 Other: # Voids 3 10 Date of Last Bowel Movement 05/01/18 05/06/18 # Bowel Movements 1 Narrative: GENERAL: Well-nourished, well-developed pleasant elderly male patient in [facility]. SKIN: Warm and dry. No rash. HEENT: Normocephalic. Atraumatic. Pupils equal and round. Mucous membranes pink and moist. CARDIOVASCULAR: Regular rate and rhythm. No murmur appreciated. RESPIRATORY: No accessory muscle use. Clear to auscultation. Breath sounds equal bilaterally. GASTROINTESTINAL: Abdomen soft, non-tender, nondistended. Normoactive bowel sounds x4. MUSCULOSKELETAL: No obvious deformities. Extremities without clubbing, cyanosis , or edema. NEUROLOGICAL: Awake and alert. No obvious cranial nerve deficits. Moving all extremities spontaneously. Normal speech. PSYCHIATRIC: Appropriate mood and affect; insight and judgment normal. Results - Labs CBC & Chem 7: 05/06/18 07:20 05/06/18 07:20 Laboratory Results - last 24 hr 05/05/18 05/06/18 05/06/18 05:11 07:20 07:20 WBC 6.7 RBC 4.07 L Hgb 13.6 Hct 37.9 L MCV 93.0 MCH 33.4 MCHC 35.9 RDW 13.7 Plt Count 149 L MPV 8.2 Neut % (Auto) 76.8 H Lymph % (Auto) 11.2 [place] % (Auto) 11.5 H Eos % (Auto) 0.4 Baso % (Auto) 0.1 Neut # (Auto) 5.1 Lymph # (Auto) 0.7 L [place] # (Auto) 0.8 Eos # (Auto) 0.0 Baso # (Auto) 0.0 WBC Differential . Differential Comment Auto diff final Sodium 144 Potassium 3.7 Chloride 108 H Carbon Dioxide 27.7 Anion Gap 8 BUN 12 Creatinine 0.64 Estimated GFR Greater than 89 Random Glucose 120 H Calcium 8.4 L Total Bilirubin 1.2 H AST 34 ALT 114 H Alkaline Phosphatase 92 Total Protein 6.3 L Albumin 3.1 L Lipase 949 H - Imaging Impressions GI Procedure 05/05/18 00:00 CONCLUSION: Choledocholithiasis. - Procedures 05/05/18ERCP Assessment and Plan - Assessment (1) Acute gallstone pancreatitis Code(s): K85.10 - Biliary acute pancreatitis without necrosis or infection Status: Acute - Plan 72-year-old male with history of HTN, HLD, CAD s/p CABG, alcohol use, anxiety/ depression, vitamin B12 deficiency, presents with abdominal pain Acute gallstone pancreatitis: presented with abdominal pain, not tolerating oral intake since 04/30 -CT abd/pelvis 05/04 reviewed, shows cholecystitis, cholelithiasis, choledocholithiasis -Lipase elevated at 9714, improved to 949 -Kept NPO, given IVF hydration, pain control prn, antiemetics prn -Consult GI -S/p ERCP on 05/05 -Diet advanced, patient tolerating well -Anticipate patient with need cholecystectomy as outpatient -await GI clearance prior to discharge today Coronary artery disease s/p CABG x 6/PCI with stenting: chronic -continue home meds including aspirin/plavix, statin, ADAM -no BB due to bradycardia -outpatient f/up with cardiology Hypertension: chronic, controlled -continue home meds including ADAM -monitor BP, adjust antihypertensives as needed Hyperlipidemia: chronic -continue patient's statin Anxiety disorder/Depression: chronic -continue patient's prozac and xanax prn Vitamin B 12 deficiency: chronic -continue B12 replacement Alcohol Use: chronic, no history of withdrawal -counseled on cessation and limiting alcohol intake -no signs of withdrawal, not a daily drinker, only 1-2 glasses of wine at night per the patient DVT prophylaxis. SCDs. Discharge Planning: Possible discharge today if cleared by GI.
[2018-05-06] MEDS: Enoxaparin Inj 40 MG/0.4 ML Syringe SQ SCH (11:40)
[2018-05-06 12:26] VITALS: PULSE 46; TEMP 98.3; O2SAT 94
--- NOTE | 2018-05-06 15:20 | P.PNGI ---
Subjective Interval history: Patient is resting in the bed denies any acute abdominal pain nausea vomiting able to increase mobility without any pain tolerating regular food and oral hydration. Patient is status post ERCP on 05/05/2018 Physical Exam Vital signs: Vital Signs 05/05/18 16:00 05/05/18 19:07 05/06/18 00:15 Temperature 98.7 F 98.7 F 98.3 F Pulse Rate 58 L 61 43 L Respiratory Rate 16 20 18 Blood Pressure 152/67 H 124/64 115/55 L Pulse Oximetry 96 95 95 05/06/18 01:00 05/06/18 03:45 05/06/18 08:00 Temperature 97.7 F 98.1 F Pulse Rate 43 L 43 L Respiratory Rate 17 19 18 Blood Pressure 122/57 L 118/58 L Pulse Oximetry 99 99 05/06/18 12:00 Temperature 98.3 F Pulse Rate 46 L Respiratory Rate 18 Blood Pressure 100/55 L Pulse Oximetry 94 L Intake & Output 05/05/18 05/06/18 05/06/18 18:59 06:59 18:59 Intake Total 2040 / 2040 1440 / 1440 Balance 2040 / 2040 1440 / 1440 Weight 86.7 kg Intake: IV 100 / 100 Unasyn Inj 3 GM In NS Inj 100 100 / 100 ML @ 200 mls/hr IV.SIG ONCE ONE Rx#:[id number] Oral 940 / 940 1440 / 1440 Anesthesia Amount 1000 / 1000 Other: # Voids 3 10 Date of Last Bowel Movement 05/01/18 05/06/18 05/06/18 # Bowel Movements 1 - Constitutional no acute distress, obese, cooperative - Routine HEENT Exam Head: Present: normocephalic ENT: Present: mucous membranes moist - Routine Respiratory Exam Present: CTA bilaterally - Routine Cardiovascular Exam Present: S1, S2 - Routine Abdominal Exam Present: soft, normoactive bowel sounds (No obvious tenderness no distention) - Routine Skin Exam Present: intact Results - Labs CBC & Chem 7: 05/06/18 07:20 05/06/18 07:20 Laboratory Results - last 24 hr 05/06/18 05/06/18 07:20 07:20 WBC 6.7 RBC 4.07 L Hgb 13.6 Hct 37.9 L MCV 93.0 MCH 33.4 MCHC 35.9 RDW 13.7 Plt Count 149 L MPV 8.2 Neut % (Auto) 76.8 H Lymph % (Auto) 11.2 [place] % (Auto) 11.5 H Eos % (Auto) 0.4 Baso % (Auto) 0.1 Neut # (Auto) 5.1 Lymph # (Auto) 0.7 L [place] # (Auto) 0.8 Eos # (Auto) 0.0 Baso # (Auto) 0.0 WBC Differential . Differential Comment Auto diff final Sodium 144 Potassium 3.7 Chloride 108 H Carbon Dioxide 27.7 Anion Gap 8 BUN 12 Creatinine 0.64 Estimated GFR Greater than 89 Random Glucose 120 H Calcium 8.4 L Total Bilirubin 1.2 H AST 34 ALT 114 H Alkaline Phosphatase 92 Total Protein 6.3 L Albumin 3.1 L - Procedures 05/05/18ERCP Assessment and Plan - Plan 72-year-old male who initially came to [place] for evaluation of mid abdominal pain which radiated across abdomen to back. Onset of symptoms was 4 days ago with associated nausea and vomiting decreased appetite and uncontrolled pain 10 out of a 10. Patient was positive for some chills/fever, but denied any obvious hematemesis or rectal bleeding. Currently patient notes history of GERG and dyspepsia in the past but none recently. Labs reviewed which showed bilirubin 3, AST 108, ALT 254, alkaline phosphatase 135, hemoglobin 16.1, and white count 7.2 and lipase level 9714 consistent with pancreatitis. Initial CT scan showed cholecystitis, cholelithiasis, choledocholithiasis, moderate stenosis of the right common iliac artery and umbilical hernia, dilated common bile duct up to 8 mm and at least one tiny stone seen in the distal common bile duct. Patient had positive family history of grandfather with colon cancer many years ago, no previous colonoscopy but did have endoscopy approximately 14 years ago and was treated for GERD then. Strongly neurology was consulted to see patient and transferred him to [place] for further observation and plan of care. Cholecystitis, compatible with abdominal pain right mid and left quadrants radiating to the back region Choledocholithiasis also associated with #1 and abdominal pain, common bile duct dilatation 8 mm with stones seen History of GERD, currently denies any dyspepsia or dysphasia, had EGD approximately 14 years ago and was initially treated for GERD but no meds now, positive family history grandfather colon cancer, no previous colonoscopy Nausea vomiting decreased appetite over the last 4 days consistent with #1 and # 2 Hyperbilirubinemia/transaminitis, could be related to gallbladder disease versus hepatocellular disease patient is a daily alcohol consumption 05/06/2018 patient is status post ERCP with sphincterectomy and stone removal on 05/05/[address] Kelley. Images demonstrated filling defects in the distal common bile duct noted characteristic of choledocholithiasis. Positive MRCP, so patient was transitioned [place] for the procedure. Patient is tolerating solid food and hydration without any nausea vomiting or abdominal pain. Patient had initially been told per Dr. Kelley to follow-up with general surgery on an outpatient basis and have further evaluation of possible cholecystectomy. Current labs reviewed which show hemoglobin 13.6, and WBC count normal at 6.7. Continue diet as tolerated heart healthy, monitor spicy greasy foods and reflux precautions. Lipase initially 9714 and now decreased to 949. Follow-up with general surgery outpatient for evaluation of gallbladder Cholecystitis Choledocholithiasis Transaminitis improving as well as hyperbilirubinemia, current bilirubin decreased to 1.2 AST 34 and ALT 114. Okay to OZZY from a GI perspective and follow-up in the office in 2-4 weeks Patient was seen per myself and Dr. Clemens, note was written on his behalf
[2018-05-06 16:41] VITALS: BP 135/62
--- NOTE | 2018-05-06 16:58 | P.DS ---
Date of admission: 05/04/18 10:03 Primary care physician: Luis Fernando Faulkner MD Attending physician on discharge: Zachary Mayen Anticipated date of discharge: 05/06/18 Brief History from admission: From Dr. Owens H&P upon admission: This is a pleasant 72 y/o Male with CAD status post CABG x 6, who came to ER at [facility] with Abdominal pain, for 4 days, Said he went to see his PCP 2 days ago and he ordered an MRCP as outpatient that he has not gotten yet. +Nausea and vomiting. +Chill/sweat. +Dysuria today. +Dark urine. No abdominal surgery. Had gallstone and kidney stone before. Denies any fever, chest pain, sob, focal weakness or numbness. +Drinks 3 glasses of wine a day. as We know he has Hypertension, Hyperlipidemia Vitamin B 12 deficiency, Anxiety, depression, Alcohol abuse. No leukocytosis, Lipase elevated 9714, LFTs elevated, UA negative, CT a/p showed stone in neck of gallbladder, dilated common bile duct up to 8mm, at least one tiny stone in distal common bile duct. +Pericholecystic fluid and gallbladder wall thickening. Doctor Dylan accepted the patient for this facility to perform ERCP. Patient update on day of discharge: Follow up for acute gallstone pancreatitis. Diet was advanced to regular foods earlier today. Patient tolerated well. No reports of abdominal pain, nausea/ vomiting, or fevers/chills. He was seen by gastroenterology this afternoon and cleared for discharge. Dr. Clemens recommending outpatient f/up with GI in 2- 4weeks. DS: Diagnosis - Discharge Diagnosis (1) Acute gallstone pancreatitis Status: Acute DS: Medications - Discharge Medications Prescriptions: pantoprazole 40 mg PO DAILY #30 tab DS: Summary Hospital Course: 72-year-old male with history of HTN, HLD, CAD s/p CABG, alcohol use, anxiety/ depression, vitamin B12 deficiency, presents with abdominal pain and inability to tolerate oral intake. Acute gallstone pancreatitis: presented with abdominal pain, not tolerating oral intake since 04/30. Upon arrival, Lipase elevated at 9714. CT abd/pelvis showed cholecystitis, cholelithiasis, choledocholithiasis. MRCP 05/04 showed Several tiny gallstones present in the distal common bile duct measuring up to about 3 mm in diameter; Numerous gallstones with pericholecystic fluid present. Patient was transferred from [facility] for ERCP by GI. Kept NPO, given IVF hydration, pain control prn, antiemetics prn. Consulted GI. S/p ERCP on 05/05 with removal of many small stones. Lipase improved from 9714 to 949. Diet advanced, patient tolerating well. Anticipate patient may need cholecystectomy in the future as outpatient. Cleared for discharge by GI Dr. Clemens with outpatient f/up in 2-4 weeks. Hypertension/Hyperlipidemia/CAD s/p CABG x 6/PCI with stenting: chronic, BP controlled. Continued home meds including aspirin/plavix, statin, ADAM. No BB due to bradycardia. Outpatient f/up with cardiology. Anxiety disorder/Depression: chronic. Continue patient's prozac and xanax prn. Vitamin B 12 deficiency: chronic. Continues B12 replacement - Time Spent with Patient Total time spent providing and/or coordinating discharge services: Greater than 30 minutes - Quality: VTE Deep Vein Thrombosis/Pulmonary Embolism Present on Admission: No Exam Vital signs: Vital Signs 05/05/18 19:07 05/06/18 00:15 05/06/18 01:00 Temperature 98.7 F 98.3 F Pulse Rate 61 43 L Respiratory Rate 20 18 17 Blood Pressure 124/64 115/55 L Pulse Oximetry 95 95 05/06/18 03:45 05/06/18 08:00 05/06/18 12:00 Temperature 97.7 F 98.1 F 98.3 F Pulse Rate 43 L 43 L 46 L Respiratory Rate 19 18 18 Blood Pressure 122/57 L 118/58 L 100/55 L Pulse Oximetry 99 99 94 L 05/06/18 16:00 Temperature 98.3 F Pulse Rate 46 L Respiratory Rate 18 Blood Pressure 135/62 Pulse Oximetry 94 L Intake & Output 05/05/18 05/06/18 05/06/18 18:59 06:59 18:59 Intake Total 2039 1440 / 1440 Balance 2039 1440 / 1440 Weight 86.7 kg Intake: IV 100 / 100 Unasyn Inj 3 GM In NS Inj 100 100 / 100 ML @ 200 mls/hr IV.SIG ONCE ONE Rx#:[id number] Oral 940 / 940 1440 / 1440 Anesthesia Amount 1000 / 1000 Other: # Voids 3 10 Date of Last Bowel Movement 05/01/18 05/06/18 05/06/18 # Bowel Movements 1 Narrative: GENERAL: Well-nourished, well-developed pleasant elderly male patient in [facility]. SKIN: Warm and dry. No rash. HEENT: Normocephalic. Atraumatic. Pupils equal and round. Mucous membranes pink and moist. CARDIOVASCULAR: Regular rate and rhythm. No murmur appreciated. RESPIRATORY: No accessory muscle use. Clear to auscultation. Breath sounds equal bilaterally. GASTROINTESTINAL: Abdomen soft, non-tender, nondistended. Normoactive bowel sounds x4. MUSCULOSKELETAL: No obvious deformities. Extremities without clubbing, cyanosis , or edema. NEUROLOGICAL: Awake and alert. No obvious cranial nerve deficits. Moving all extremities spontaneously. Normal speech. PSYCHIATRIC: Appropriate mood and affect; insight and judgment normal. Results Procedures completed during hospitalization: 05/05/18ERCP Labs on day of discharge: Labs from last 24 hours 05/06/18 05/06/18 07:20 07:20 WBC 6.7 RBC 4.07 L Hgb 13.6 Hct 37.9 L MCV 93.0 MCH 33.4 MCHC 35.9 RDW 13.7 Plt Count 149 L MPV 8.2 Neut % (Auto) 76.8 H Lymph % (Auto) 11.2 [place] % (Auto) 11.5 H Eos % (Auto) 0.4 Baso % (Auto) 0.1 Neut # (Auto) 5.1 Lymph # (Auto) 0.7 L [place] # (Auto) 0.8 Eos # (Auto) 0.0 Baso # (Auto) 0.0 WBC Differential . Differential Comment Auto diff final Sodium 144 Potassium 3.7 Chloride 108 H Carbon Dioxide 27.7 Anion Gap 8 BUN 12 Creatinine 0.64 Estimated GFR Greater than 89 Random Glucose 120 H Calcium 8.4 L Total Bilirubin 1.2 H AST 34 ALT 114 H Alkaline Phosphatase 92 Total Protein 6.3 L Albumin 3.1 L - Impressions ITS Impressions Cholangiopancreatography MRI 05/04/18 00:00 CONCLUSION: 1. Several tiny gallstones present in the distal common bile duct measuring up to about 3 mm in diameter. 2. Numerous gallstones with pericholecystic fluid present. This is nonspecific but can be associated with cholecystitis. 3. Dependent atelectasis in the lungs with trace pleural fluid. Abdomen/Pelvis CT 05/04/18 07:59 CONCLUSION: 1. Cholecystitis. 2. Cholelithiasis. 3. Diffuse atherosclerosis with moderate stenosis of the right common iliac artery which is mildly prominent in caliber as well as occlusion of the right internal iliac artery at its origin. 4. Containing umbilical hernia. 5. Prominent prostate. 6. Choledocholithiasis. GI Procedure 05/05/18 00:00 CONCLUSION: Choledocholithiasis. Discharge Plan - Discharge Disposition Patient Disposition: 01 Discharge Home - Discharge Condition Condition: Stable - Discharge Order Discharge Orders: Discharge Order (Routine); Ordered 05/06/18 Ordered By: Poonam Romero - Discharge Details Anticipated Discharge Date: 05/06/18 Discharge Comment: Patient cleared by GI. Ok to discharge. - Physicians Team Primary Care Provider: Luis Fernando Faulkner Attending Provider: Zachary Mayen Other Providers: Theresa Richardson MD ; Hero Monahan
== END 2018-05-06 18:24 | disposition home or self-care (01) ==
LOC: PHED 07:26 → PHEDA 10:03 → N06 12:00
PROVIDERS: ADMIT Internal Medicine; ATTEND Internal Medicine

== ENCOUNTER 2018-08-13 08:15 | Observation (INO) ==
--- NOTE | 2018-08-13 10:43 | ED ---
HPI General Chief Complaint: Abdominal Pain Stated Complaint: lower back pain complaint Time Seen by Provider: 08/13/18 10:35 Source: patient Mode of arrival: ambulatory Limitations: no limitations History of Present Illness HPI narrative: Patient has no known drug allergy Patient has past medical history significant for [place] coronary artery disease, cholecystectomy, kidney stones, gallbladder disease, B12 deficiency, primary hypertension, hypercholesterolemia, open heart surgery. The patient comes in complaining of right flank pain onset at 1830 last night. Currently has stopped radiating but it was previously radiating towards his right lower quadrant, 8 out of 10, patient states he has previous histories of kidney stones and this feels very similar to it. MD complaint: Reports flank pain Onset (ago): hour(s) (12hrs or so) Pain Consistency: constant Location: Reports R flank Severity: moderate Severity scale (1-10): 7 Quality: Reports sharp Radiation: Reports none Migration to: Reports no migration Relieving factors: nothing Exacerbating factors: nothing Associated symptoms: Reports denies other symptoms Related Data Home Medications Medication Instructions Recorded Confirmed alprazolam 0.25 mg PO BID PRN 03/24/18 08/13/18 aspirin [Aspirin Low Dose] 81 mg PO DAILY 03/24/18 08/13/18 atorvastatin 80 mg PO DAILY 03/24/18 08/13/18 clopidogrel 75 mg PO DAILY 03/24/18 08/13/18 cyanocobalamin (vitamin B-12) 1,000 mcg PO DAILY 03/24/18 08/13/18 fluoxetine 20 mg PO DAILY 03/24/18 08/13/18 ramipril 2.5 mg PO DAILY 03/24/18 08/13/18 temazepam 15 mg PO HS PRN 03/24/18 08/13/18 amlodipine 2.5 mg PO BID 06/15/18 08/13/18 Allergies Allergy/AdvReac Type Severity Reaction Status Date / Time No Known Allergies Allergy Verified 08/13/18 08:24 Review of Systems ROS: all other systems reviewed are negative PMFSH History History Provided By: Patient Medical History Medical History CAD (coronary artery disease) (Acute) FHx: cholecystectomy (Acute) Gallbladder disease (Acute) Heart attack (Acute) History of high cholesterol (Acute) Hx of myocardial infarction (Acute) Hx of primary hypertension (Acute) Kidney stones (Acute) Vitamin B12 deficiency (Acute) Wears hearing aid in both ears (Acute) Surgical History Surgical History History of open heart surgery (Acute) Hx of cardiac cath (Acute) Hx of heart artery stent (Acute) Family History Family History Father Family history of acute myocardial infarction Social History Social History Substance History: No History of Abuse Second Hand Smoke Exposure: No Smoking Status: Never smoker Tobacco Type: Cigarettes How Often Do You Have a Drink Containing Alcohol: 4 or more times a week Recent Travel in [facility] within the Last 8 Weeks: No Recent Out of Country Travel within the Last 8 Weeks: No Exam Narrative Exam Narrative: GENERAL: Well-nourished, well-developed patient in no apparent distress. SKIN: Warm and dry. HEAD: Atraumatic. Normocephalic. EYES: Pupils equal and round. No scleral icterus. No injection or drainage. ENT: No nasal bleeding or discharge. Mucous membranes pink and moist. NECK: Trachea midline. No JVD. CARDIOVASCULAR: Regular rate and rhythm. no rubs or gallops RESPIRATORY: No accessory muscle use. Breath sounds equal bilaterally. mild crackles on base GASTROINTESTINAL: Abdomen soft, non-tender, nondistended. No rebound or guarding MUSCULOSKELETAL: Extremities without clubbing, cyanosis, or edema. No obvious deformities. Reproducible pain on palpation of his flank pain without crepitus NEUROLOGICAL: Awake and alert. No obvious cranial nerve deficits. Motor grossly within normal limits. Five out of 5 muscle strength in the arms and legs. Normal speech. PSYCHIATRIC: Appropriate mood and affect; insight and judgment normal. Course Initial Documented Vital Signs Temperature 97.6 F 08/13/18 08:24 Pulse Rate 59 L 08/13/18 08:24 Respiratory Rate 16 08/13/18 08:24 Blood Pressure 213/106 H 08/13/18 08:24 Pulse Oximetry 97 08/13/18 08:24 Last Documented Vital Signs Temperature 97.6 F 08/13/18 08:24 Pulse Rate 48 L 08/13/18 12:19 Respiratory Rate 22 08/13/18 12:19 Blood Pressure 168/79 H 08/13/18 12:19 Pulse Oximetry 95 08/13/18 12:19 Medical Decision Making MDM Narrative Medical decision making narrative: Patient initially seen and evaluated by physician in triage who ordered work up. Patient has been transferred to medical pod where I have reassessed patient and reviewed results. CBC is within normal limits. CMP is within normal limits. Lipase is normal. Urinalysis is unremarkable. CT of the abdomen and pelvis without contrast shows a changed, indeterminate mass posteriorly in the right upper quadrant adjacent to the liver that appears to be intraperitoneal, etiology is unclear, malignancy is not excludable. No acute renal abnormality or stones noted. Patient reassessed and reports that he had some improvement of symptoms but has had episodes of intermittent severe pain that radiates from right flank to abdomen, 04/03. Patient administered another dose of morphine 4 mg IV. Given the significant change in the patient's CT reading from last month to today with this right flank mass noted patient will be admitted to hospital for further evaluation and workup of this condition. I spoke with Dr. Amezquita [facility] who accepts patient to his service. Medical Screen Exam Complete: Yes Emergency Medical Condition: Yes Lab Data Result diagrams: 08/13/18 11:30 08/13/18 11:30 Lab Results 08/13/18 08/13/18 08/13/18 Range/Units 10:57 11:30 11:30 WBC 5.0 (4.0-11.0) th/mm3 RBC 4.99 (4.50-5.90) mil/mm3 Hgb 15.1 (13.0-17.0) gm/dL Hct 44.4 (39.0-51.0) % MCV 89.0 (80.0-100.0) fL MCH 30.3 (27.0-34.0) pg MCHC 34.1 (32.0-36.0) % RDW 15.3 (11.6-17.2) % Plt Count 202 (150-450) th/mm3 MPV 7.5 (7.0-11.0) fL Neut % (Auto) 64.4 (16.0-70.0) % Lymph % (Auto) 22.2 (9.0-44.0) % [place] % (Auto) 11.2 H (0.0-8.0) % Eos % (Auto) 1.8 (0.0-4.0) % Baso % (Auto) 0.4 (0.0-2.0) % Neut # (Auto) 3.2 (1.8-7.7) th/mm3 Lymph # (Auto) 1.1 (1.0-4.8) th/mm3 [place] # (Auto) 0.6 (0.0-0.9) th/mm3 Eos # (Auto) 0.1 (0.0-0.4) th/mm3 Baso # (Auto) 0.0 (0.0-0.2) th/mm3 WBC Differential . Differential Comment Auto diff final Sodium 141 (136-145) meq/L Potassium 4.4 (3.5-5.1) meq/L Chloride 106 (98-107) meq/L Carbon Dioxide 31.0 (21.0-32.0) meq/L Anion Gap 4 L (5-15) meq/L BUN 14 (7-18) mg/dL Creatinine 0.65 (0.60-1.30) mg/dL Estimated GFR Greater than 89 (>89) mL/min Random Glucose 102 (74-106) mg/dL Calcium 8.7 (8.5-10.1) mg/dL Total Bilirubin 0.7 (0.2-1.0) mg/dL AST 18 (15-37) U/L ALT 22 (12-78) U/L Alkaline Phosphatase 86 (45-117) U/L Total Protein 7.3 (6.4-8.2) g/dL Albumin 3.6 (3.4-5.0) g/dL Lipase 97 (73-393) U/L Urine Color Yellow (Yellw/Straw) Urine Clarity Clear (Clear) Urine pH 6.0 (5.0-8.5) Ur Specific [place] 1.016 (1.002-1.035) Urine Protein Negative (Neg-Trace) mg/dL Urine Glucose (UA) Negative (Negative) mg/dL Urine Ketones Negative (Negative) mg/dL Urine Occult Blood Negative (Negative) Urine Nitrate Negative (Negative) Urine Bilirubin Negative (Negative) Urine Urobilinogen Less than 2 (Less than 2) mg/dL Ur Leukocyte Esterase Negative (Negative) Urine RBC Less than 1 (0-3) /hpf Urine WBC 1 (0-5) /hpf Urine Mucus Few H (Occasional) /lpf Micro UA Comment Culture not ind Ur Microscopic Review Not Reportable Urine Culture Comments Culture not ind Imaging Data Radiologist's impression: Abdomen/Pelvis CT 08/13/18 10:48 CONCLUSION: 1. There is a changed, indeterminate mass posteriorly in the right upper quadrant adjacent to the liver that I believe is intraperitoneal. Etiology is uncertain. Malignancy is not excludable. 2. No acute renal abnormality demonstrated. There are no stones or obstructive uropathy seen. 3. Splenomegaly, slightly worse. 4. Tiny right pleural effusion. 5. Unchanged right middle lobe pulmonary nodule. Discharge Plan Discharge Disposition Patient Disposition: ED Admit(ED Internal Use Only) Discharge Condition Condition: Stable Discharge Details Diagnosis: Abdominal mass Physicians Team ED Provider: Chilo Duffy ED Midlevel Provider: Deja Anaya Primary Care Provider: Luis Fernando Faulkner Rxs /Orders / Referrals /Forms Prescriptions: No Action atorvastatin 80 mg Tablet 80 mg PO DAILY RF: 0 clopidogrel 75 mg Tablet 75 mg PO DAILY RF: 0 aspirin [Aspirin Low Dose] 81 mg Tablet,Delayed Release (Dr/Ec) 81 mg PO DAILY RF: 0 alprazolam 0.25 mg Tablet 0.25 mg PO BID PRN (Reason: Anxiety) RF: 0 temazepam 15 mg Capsule 15 mg PO HS PRN (Reason: Insomnia) RF: 0 ramipril 2.5 mg Capsule 2.5 mg PO DAILY RF: 0 fluoxetine 20 mg Capsule 20 mg PO DAILY RF: 0 cyanocobalamin (vitamin B-12) 1,000 mcg Capsule 1,000 mcg PO DAILY RF: 0 amlodipine 2.5 mg Tablet 2.5 mg PO BID RF: 0 Status ED Status: With Doctor
[2018-08-13] MEDS ORDERED: Morphine Inj 4 MG/ML Vial IV.PUSH ONE ×2 (10:48→13:10)
[2018-08-13] MEDS ORDERED: Sod Chloride 0.9% Inj 1,000 ML IV.CONT SCH (11:00)
[2018-08-13 11:50] LABS: Baso % (Auto) 0.4 % (0.0-2.0); Eos # (Auto) 0.1 th/mm3 (0.0-0.4); Eos % (Auto) 1.8 % (0.0-4.0); Hematocrit 44.4 % (39.0-51.0); Hemoglobin 15.1 gm/dL (13.0-17.0); Lymph # (Auto) 1.1 th/mm3 (1.0-4.8); Lymph % (Auto) 22.2 % (9.0-44.0); Mean Corpuscular HGB Conc 34.1 % (32.0-36.0); Mean Corpuscular Hemoglobin 30.3 pg (27.0-34.0); Mean Platelet Volume 7.5 fL (7.0-11.0); Mono # (Auto) 0.6 th/mm3 (0.0-0.9); Mono % (Auto) 11.2 % (0.0-8.0); Neut # (Auto) 3.2 th/mm3 (1.8-7.7); Neut % (Auto) 64.4 % (16.0-70.0); Platelet Count 202 th/mm3 (150-450); Red Blood Count 4.99 mil/mm3 (4.50-5.90); Red Cell Distribution Width 15.3 % (11.6-17.2)
[2018-08-13 12:13] LABS: Bilirubin,Urine Negative (Negative); Clarity,Urine Clear (Clear); Color,Urine Yellow (Yellw/Straw); Glucose,Urine (UA) Negative (Negative); Leukocyte Esterase,Urine Negative (Negative); Mucus,Urine Few /lpf (Occasional); Nitrite,Urine Negative (Negative); Specific Gravity,Urine 1.016 (1.002-1.035)
[2018-08-13 12:14] LABS: Alanine Aminotransferase 22 U/L (12-78); Albumin 3.6 g/dL (3.4-5.0); Anion Gap 4 meq/L (5-15); Aspartate Aminotransferase 18 U/L (15-37); Blood Urea Nitrogen 14 mg/dL (7-18); Calcium 8.7 mg/dL (8.5-10.1); Chloride 106 meq/L (98-107); Glomerular Filtration Rate Greater Than 89 mL/min (>89); Glucose,Random 102 mg/dL (74-106); Lipase 97 U/L (73-393); Potassium 4.4 meq/L (3.5-5.1); Sodium 141 meq/L (136-145)
[2018-08-13 12:16] LABS: Alkaline Phosphatase 86 U/L (45-117); Total Protein 7.3 g/dL (6.4-8.2)
--- NOTE | 2018-08-13 12:46 | CT ---
EXAM DATE: 08/13/2018 12:06 PM EST AGE/SEX: 72 years / Male INDICATIONS: Right flank pain CLINICAL DATA: This is the patient's initial encounter. Patient reports that signs and symptoms have been present for 1 day and indicates a pain score of 4/10. MEDICAL/SURGICAL HISTORY: Renal calculi. Hypertension. Cardiovascular disease. CABG. RADIATION DOSE: 7.81 CTDI (mGy) COMPARISON: [facility], CT ABDOMEN & PELVIS W/O CONTRAST, 06/28/2018. [facility], CT ABDOMEN & PELVIS W CONTRAS T, 05/04/2018. . TECHNIQUE: Multiple contiguous axial images were obtained through the abdomen. Images were obtained using multiple row detector helical technique. Using automated exposure control and adjustment of the mA and/or kV according to patient size, radiation dose was kept as low as reasonably achievable to o btain optimal diagnostic quality images. DICOM format image data is available electronically for rev iew and comparison. FINDINGS: Noncontrast appearance of the liver, pancreas and adrenal glands is within normal limits. No stones o r obstructive uropathy seen of either kidney. There is 15.2 cm spleen, previously 14 cm. No focal spl enic lesion demonstrated. No obstruction or acute inflammatory changes are seen of the gastrointestinal tract. 2.0 x 4.4 x 4.8 cm soft tissue mass is seen in the posterior right upper quadrant. This is posterior to the upper pole of the kidney and adjacent to the posteromedial margin of the right hepatic lobe. A faint calcification is seen centrally within the mass. It is probably intraperitoneal. It is adjacen t to the right 11th rib Tiny right pleural effusion. There is mild atelectasis of both bases. An approximately 6 mm nodule of the right middle lobe is unchanged. Atherosclerotic abdominal aorta. No aneurysm. A retroaortic left renal vein is again seen. CONCLUSION: 1. There is a changed, indeterminate mass posteriorly in the right upper quadrant adjacent to the li danielle that I believe is intraperitoneal. Etiology is uncertain. Malignancy is not excludable. 2. No acute renal abnormality demonstrated. There are no stones or obstructive uropathy seen. 3. Splenomegaly, slightly worse. 4. Tiny right pleural effusion. 5. Unchanged right middle lobe pulmonary nodule. Electronically signed by: Leonardo Weaver MD Board Certified Radiologist 08/13/2018 12:45 PM EST
[2018-08-13] MEDS ORDERED: Naloxone Inj 0.4 MG/ML Vial IV.PUSH PRN (13:54)
[2018-08-13] MEDS ORDERED: Morphine Inj 4 MG/ML Vial IV.PUSH PRN (13:54)
[2018-08-13] MEDS ORDERED: Acetaminophen 325 MG Tablet PO PRN ×2 (13:54→14:20)
--- NOTE | 2018-08-13 14:11 | P.HPIM ---
History of Present Illness Primary Care Physician: Luis Fernando Faulkner MD Chief Complaint: flank pain , Right History of Present Illness: 72-year-old male with history of coronary artery disease, acute gallstone pancreatitis status post cholecystectomy presenting with severe right flank/abdominal pain which started last night. Abdominal pain described as colicky, coming in waves, 10/10, coming from the right posterior back, sometimes radiating to the front, associated with nausea but no vomiting. No urinary symptoms like dysuria, frequency or urgency. Patient denies any diarrhea, last bowel movement was normal this morning. Patient denies any fever, chills, shortness of breath, chest pain or cough. Pain was not relieved with 4 mg of morphine intravenously. Of note, patient was admitted in April 2018 diagnosed to have gallstone pancreatitis. Patient improved, discharged home, presented to emergency department again June 15, was diagnosed to have acute cholecystitis, patient status post cholecystectomy 06/19/2018. Patient presented again to the emergency department 06/23/2018 for inability to urinate. Patient was found to have distended urinary bladder, CT scan of the abdomen showed possible resolving hematoma versus abscess. General surgery was consulted, patient was cleared for discharge on antibiotics and Hutchins catheter. Patient followed up with a urologist, Hutchins catheter was removed after 9 days. Patient presented again to the emergency department on June [address] scan of the abdomen and pelvis done which revealed fluid collection that has improved and there appears to be a 6 mm extruded gallstone. Patient was discharged from the emergency department since lab work remain negative after consultation with Dr. Cruz. Patient has been apparently doing well until last night when abdominal pain started. There is no family history of cancer or cirrhosis Patient does not smoke, drinks about 4 glasses of wine with dinner. Last drink was last night. Inpatient Certification Inpatient Certification: I certify that the inpatient services were ordered in accordance with Medicare regulations governing the order. This includes certification that hospital inpatient services are reasonable and necessary and in the case of services not specified as inpatient-only under 42 CFR 419.22(n), that they are appropriately provided as inpatient services in accordance to with the 2-midnight benchmark under 43 CFR 412.3(e) Review of Systems Review of Systems: all other systems reviewed are negative [facility] Medical History Medical History CAD (coronary artery disease) (Acute) FHx: cholecystectomy (Acute) Gallbladder disease (Acute) Heart attack (Acute) History of high cholesterol (Acute) Hx of myocardial infarction (Acute) Hx of primary hypertension (Acute) Kidney stones (Acute) Vitamin B12 deficiency (Acute) Wears hearing aid in both ears (Acute) Surgical History Surgical History History of open heart surgery (Acute) Hx of cardiac cath (Acute) Hx of heart artery stent (Acute) Family History Family History Father Family history of acute myocardial infarction Social History Social History Substance History: No History of Abuse Second Hand Smoke Exposure: No Smoking Status: Never smoker Tobacco Type: Cigarettes How Often Do You Have a Drink Containing Alcohol: 4 or more times a week Recent Travel in [facility] within the Last 8 Weeks: No Recent Out of Country Travel within the Last 8 Weeks: No Immunization History Tetanus Immunization: Unsure Medications and Allergies Allergies Allergy/AdvReac Type Severity Reaction Status Date / Time No Known Allergies Allergy Verified 08/13/18 08:24 Home Medications Medication Instructions Recorded Confirmed Type alprazolam 0.25 mg PO BID PRN 03/24/18 08/13/18 History aspirin [Aspirin Low Dose] 81 mg PO DAILY 03/24/18 08/13/18 History atorvastatin 80 mg PO DAILY 03/24/18 08/13/18 History clopidogrel 75 mg PO DAILY 03/24/18 08/13/18 History cyanocobalamin (vitamin B-12) 1,000 mcg PO DAILY 03/24/18 08/13/18 History fluoxetine 20 mg PO DAILY 03/24/18 08/13/18 History ramipril 2.5 mg PO DAILY 03/24/18 08/13/18 History temazepam 15 mg PO HS PRN 03/24/18 08/13/18 History amlodipine 2.5 mg PO BID 06/15/18 08/13/18 History Active Medications: Active Medications Acetaminophen (Tylenol) 650 mg PO Q6HR PRN PRN Reason: PAIN SCALE 1 TO 2 Hydrocodone Bitart/Acetaminophen ([place] 5/325) 1 tab PO Q4H PRN PRN Reason: PAIN SCALE 3 TO 5 Sodium Chloride (Ns Inj) 1,000 mls @ 125 mls/hr IV.CONT .Q8H C[facility] Stop: 08/13/18 18:59 Last Admin: 08/13/18 11:47 Dose: 125 mls/hr Morphine Sulfate (Morphine Inj) 6 mg IV.PUSH Q3H PRN PRN Reason: BREAKTHROUGH PAIN Naloxone HCl (Narcan Inj) 0.4 mg IV.PUSH UNSCH PRN PRN Reason: SEE LABEL COMMENTS Oxycodone/Acetaminophen (Percocet 10/325 Mg) 1 tab PO Q6H PRN PRN Reason: PAIN SCALE 6 TO 10 Sodium Chloride (Ns Flush) 2 ml IV.FLUSH PRN PRN PRN Reason: FLUSH AFTER USING IV ACCESS Physical Exam Vital signs: Vital Signs 08/13/18 08:24 08/13/18 12:19 Temperature 97.6 F Pulse Rate 59 L 48 L Respiratory Rate 16 22 Blood Pressure 213/106 H 168/79 H Pulse Oximetry 97 95 Intake & Output 08/12/18 08/13/18 08/13/18 18:59 06:59 18:59 Weight 81.647 kg Narrative: Not in distress, looks stated age, in pain. PERRL, pink conjunctiva without injection, anicteric Nose without bleeding, airway patent Supple neck, no masses Normal rate and regular rhythm, no murmurs gallops or rubs appreciated. Clear to auscultation and symmetric bilaterally, normal respiratory effort. Normal bowel sounds, soft, positive tenderness right upper quadrant and epigastric area, positive CVA tenderness. Nondistended, no guarding. Extremities without clubbing, cyanosis, or edema. No rash of generalized distribution. Skin is warm and dry. AAO x3, no cranial nerve deficits, moves all 4 extremities, no focal neurologic deficits Results Labs CBC & Chem 7: 08/13/18 11:30 08/13/18 11:30 Imaging Impressions Abdomen/Pelvis CT 08/13/18 10:48 CONCLUSION: 1. There is a changed, indeterminate mass posteriorly in the right upper quadrant adjacent to the liver that I believe is intraperitoneal. Etiology is uncertain. Malignancy is not excludable. 2. No acute renal abnormality demonstrated. There are no stones or obstructive uropathy seen. 3. Splenomegaly, slightly worse. 4. Tiny right pleural effusion. 5. Unchanged right middle lobe pulmonary nodule. Caprini VTE Risk Assessment Caprini VTE Risk Assessment: Moderate/High Risk (score >= 2) Caprini Risk Assessment Model: Point Value = 1 Point Value = 2 Point Value = 3 Point Value = 5 Age 41-60 Minor surgery BMI > 25 kg/m2 Swollen legs Varicose veins or History of unexplained or recurrent spontaneous Oral contraceptives or hormone replacement Sepsis (< 1 month) Serious lung disease, including pneumonia (< 1 month) Abnormal pulmonary function Acute myocardial infarction Congestive heart failure (< 1 month) History of inflammatory bowel disease Medical patient at bed rest Age 61-74 Arthroscopic surgery Major open surgery (> 45 min) Laparoscopic surgery (> 45 min) Malignancy Confined to bed (> 72 hours) Immobilizing plaster cast Central venous access Age >= 75 History of VTE Family history of VTE Factor V Leiden Prothrombin [id number] Lupus anticoagulant Anticardiolipin antibodies Elevated serum homocysteine Heparin-induced thrombocytopenia Other congenital or acquired thrombophilia Stroke (< 1 month) Elective arthroplasty Hip, pelvis, or leg fracture Acute spinal cord injury (< 1 month) Prophylaxis Regimen: Total Risk Factor Score Risk Level Prophylaxis Regimen 0-1 Low Early ambulation 2 Moderate Order ONE of the following: *Sequential Compression Device (SCD) *Heparin 5000 units SQ BID 3-4 Higher Order ONE of the following medications: *Heparin 5000 units SQ TID *Enoxaparin/Lovenox 40 mg SQ daily (WT < 150 kg, CrCl > 30 mL/min) *Enoxaparin/Lovenox 30 mg SQ daily (WT < 150 kg, CrCl > 10-29 mL/min) *Enoxaparin/Lovenox 30 mg SQ BID (WT < 150 kg, CrCl > 30 mL/min) AND/OR *Sequential Compression Device (SCD) 5 or more Highest Order ONE of the following medications: *Heparin 5000 units SQ TID (Preferred with Epidurals) *Enoxaparin/Lovenox 40 mg SQ daily (WT < 150 kg, CrCl > 30 mL/min) *Enoxaparin/Lovenox 30 mg SQ daily (WT < 150 kg, CrCl > 10-29 mL/min) *Enoxaparin/Lovenox 30 mg SQ BID (WT < 150 kg, CrCl > 30 mL/min) AND *Sequential Compression Device (SCD) Assessment and Plan Plan This is a 72-year-old male with history of coronary artery disease, recent gallstone pancreatitis status post cholecystectomy on June 19, 2018, complicated by urinary obstruction which has resolved. Patient presented at emergency department for right upper quadrant pain. CT scan of the abdomen showed an indeterminate mass. Right upper quadrant pain-could be from extruded gallstone versus abscess/ infection versus mass. CT scan of the abdomen showed a new indeterminate mass, right upper quadrant adjacent to the liver, about 4.8 cm in largest diameter, no etiology, malignancy cannot be excluded. Doubt malignancy due to rapid growth. LFTs normal, lipase is normal, no leukocytosis, urinalysis unremarkable. Consult general surgery Dr. Cruz. Recheck CBC, lipase and CMP tomorrow. Good urine output, doubt urinary retention, no hydronephrosis on CT scan. -Morphine as needed for pain, Percocet orally. Right middle lobe pulmonary [id number] as outpatient Coronary artery disease-continue aspirin, statins, Plavix Hypertension-continue Norvasc and ADAM inhibitors. DVT prophylaxis: Hold for now while awaiting input from surgery, SCDs.
[2018-08-13] MEDS ORDERED: Sodium Chloride 0.9% 2 ML Flush PRN IV.FLUSH (14:21)
[2018-08-13] MEDS ORDERED: ALPRAZolam 0.25 MG Tablet PO PRN (14:22)
[2018-08-13] MEDS: Morphine Inj 4 MG/ML Vial IV.PUSH PRN (14:41)
--- NOTE | 2018-08-13 16:15 | P.CONGS ---
[facility] Gen Surgery Consult Note Consult date: 08/13/18 Reason for consult: other (new findings up RUQ mass) Requesting physician: Liliana Amezquita Narrative: This is a 72 year old male with a history of coronary artery disease. He is known to the General Surgery service after a having a laparoscopic cholecystectomy on Jun 19. The patient came to the ED in early June with complaints of abdominal pain. A CT abdomen/pelvis was obtained which shows a small fluid collection which was likely usual post operative fluid. He states he was in his usual state of health until yesterday when he awoke with severe RIGHT flank pain. He reports the pain is worse with movement, coughing and deep breathing. A CT abdomen/pelvis was obtained which shows a RIGHT upper quadrant mass adjacent to the liver. His labs are unremarkable. He does take Plavix which his last took this morning. A General Surgery consultation has been requested. Review of Systems All other systems reviewed negative except as stated in [facility] PMF - History History Provided By: Patient - Medical History Medical History: Medical History (Last Reviewed 08/13/18 @ 16:13 by SALENA Minor) CAD (coronary artery disease) FHx: cholecystectomy Gallbladder disease Heart attack History of high cholesterol Hx of myocardial infarction Hx of primary hypertension Kidney stones Vitamin B12 deficiency Wears hearing aid in both ears - Surgical History Surgical History: Surgical History (Last Updated 08/13/18 @ 16:13 by SALENA Minor) History of open heart surgery Hx laparoscopic cholecystectomy Hx of cardiac cath Hx of heart artery stent - Family History Family History: Family History (Last Reviewed 08/13/18 @ 10:41 by Chilo Duffy) Father Family history of acute myocardial infarction - Tobacco History Second Hand Smoke Exposure: No Smoking Status: Never smoker Tobacco Type: Cigarettes - Alcohol History How Often Do You Have a Drink Containing Alcohol: 4 or more times a week - Substance Use History Substance History: No History of Abuse - Travel History Recent Travel in the [place] Within the Last 8 Weeks: No Recent Travel Out of the Country Within the Last 8 Weeks: No - Immunization History Tetanus Immunization: Unsure Medications and Allergies Allergies Allergy/AdvReac Type Severity Reaction Status Date / Time No Known Allergies Allergy Verified 08/13/18 08:24 Home Medications Medication Instructions Recorded Confirmed Type alprazolam 0.25 mg PO BID PRN 03/24/18 08/13/18 History atorvastatin 80 mg PO DAILY 03/24/18 08/13/18 History cyanocobalamin (vitamin B-12) 1,000 mcg PO DAILY 03/24/18 08/13/18 History fluoxetine 20 mg PO DAILY 03/24/18 08/13/18 History ramipril 2.5 mg PO DAILY 03/24/18 08/13/18 History temazepam 15 mg PO HS PRN 03/24/18 08/13/18 History amlodipine 2.5 mg PO BID 06/15/18 08/13/18 History Active Medications: Active Medications Acetaminophen (Tylenol) 650 mg PO Q6HR PRN PRN Reason: PAIN SCALE 1 TO 2 Acetaminophen (Tylenol) 650 mg PO Q4H PRN PRN Reason: Temp > 100.4 Hydrocodone Bitart/Acetaminophen ([place] 5/325) 1 tab PO Q4H PRN PRN Reason: PAIN SCALE 3 TO 5 Al Hydroxide/Mg Hydroxide (Milk Of Magnesia Liq) 30 ml PO Q12H PRN PRN Reason: Mild Constipation Alprazolam (Xanax) 0.25 mg PO BID PRN PRN Reason: Anxiety Amlodipine Besylate (Norvasc) 2.5 mg PO BID [facility] Aspirin (Ecotrin) 81 mg PO DAILY [facility] Atorvastatin Calcium (Lipitor) 80 mg PO DAILY [facility] Clopidogrel Bisulfate (Plavix) 75 mg PO DAILY [facility] Enalaprilat (Vasotec Inj) 1.25 mg IV.PUSH Q6H PRN PRN Reason: SBP>160, DBP>90 Fluoxetine HCl (Prozac) 20 mg PO DAILY [facility] Sodium Chloride (Ns Inj) 1,000 mls @ 125 mls/hr IV.CONT .Q8H [facility] Stop: 08/13/18 18:59 Last Admin: 08/13/18 11:47 Dose: 125 mls/hr Lactulose (Lactulose Liq) 30 ml PO DAILY PRN PRN Reason: SEVERE CONSITIPATION Miscellaneous (Pill Splitter) 1 each OTHER UNSCH PRN PRN Reason: SEE LABEL COMMENTS Morphine Sulfate (Morphine Inj) 6 mg IV.PUSH Q3H PRN PRN Reason: BREAKTHROUGH PAIN Last Admin: 08/13/18 14:41 Dose: 6 mg Naloxone HCl (Narcan Inj) 0.4 mg IV.PUSH UNSCH PRN PRN Reason: SEE LABEL COMMENTS Ondansetron HCl (Zofran Inj) 4 mg IV.PUSH Q6H PRN PRN Reason: NAUSEA OR VOMITING Oxycodone/Acetaminophen (Percocet 10/325 Mg) 1 tab PO Q6H PRN PRN Reason: PAIN SCALE 6 TO 10 Ramipril (Altace) 2.5 mg PO DAILY CANDIDO Senna/Docusate Sodium (Radha-Colace) 1 tab PO BID C[facility]O Sennosides (Senokot) 17.2 mg PO Q12H PRN PRN Reason: Moderate Constipation Sodium Chloride (Ns Flush) 2 ml IV.FLUSH BID CANDIDO Sodium Chloride (Ns Flush) 2 ml IV.FLUSH PRN PRN PRN Reason: FLUSH AFTER USING IV ACCESS Temazepam (Restoril) 15 mg PO HS PRN PRN Reason: Insomnia Exam Vital signs: Vital Signs 08/13/18 08:24 08/13/18 12:19 Temperature 97.6 F Pulse Rate 59 L 48 L Respiratory Rate 16 22 Blood Pressure 213/106 H 168/79 H Pulse Oximetry 97 95 Intake & Output 08/12/18 08/13/18 08/13/18 18:59 06:59 18:59 Weight 81.647 kg Narrative: GENERAL: Very pleasant 72 year old male resting in bed in no acute distress. SKIN: Warm and dry. HEAD: Atraumatic. Normocephalic. EYES: Pupils equal and round. No scleral icterus. No injection or drainage. ENT: No nasal bleeding or discharge. Mucous membranes pink and moist. NECK: Trachea midline. CARDIOVASCULAR: Regular rate and rhythm. RESPIRATORY: No accessory muscle use. Clear to auscultation. Breath sounds equal bilaterally. GASTROINTESTINAL: Abdomen soft, non distended. RIGHT flank tenderness to palpation. Well healed laparoscopic scars. MUSCULOSKELETAL: Extremities without clubbing, cyanosis, or edema. No obvious deformities. NEUROLOGICAL: Awake and alert. No obvious cranial nerve deficits. Motor grossly within normal limits. Five out of 5 muscle strength in the arms and legs. Normal speech. PSYCHIATRIC: Appropriate mood and affect; insight and judgment normal. Results - Labs 08/14/18 05:00 08/14/18 05:00 Laboratory Results - last 24 hr 08/13/18 08/13/18 08/13/18 10:57 11:30 11:30 WBC 5.0 RBC 4.99 Hgb 15.1 Hct 44.4 MCV 89.0 MCH 30.3 MCHC 34.1 RDW 15.3 Plt Count 202 MPV 7.5 Neut % (Auto) 64.4 Lymph % (Auto) 22.2 [place] % (Auto) 11.2 H Eos % (Auto) 1.8 Baso % (Auto) 0.4 Neut # (Auto) 3.2 Lymph # (Auto) 1.1 [place] # (Auto) 0.6 Eos # (Auto) 0.1 Baso # (Auto) 0.0 WBC Differential . Differential Comment Auto diff final Sodium 141 Potassium 4.4 Chloride 106 Carbon Dioxide 31.0 Anion Gap 4 L BUN 14 Creatinine 0.65 Estimated GFR Greater than 89 Random Glucose 102 Calcium 8.7 Total Bilirubin 0.7 AST 18 ALT 22 Alkaline Phosphatase 86 Total Protein 7.3 Albumin 3.6 Lipase 97 Urine Color Yellow Urine Clarity Clear Urine pH 6.0 Ur Specific [place] 1.016 Urine Protein Negative Urine Glucose (UA) Negative Urine Ketones Negative Urine Occult Blood Negative Urine Nitrate Negative Urine Bilirubin Negative Urine Urobilinogen Less than 2 Ur Leukocyte Esterase Negative Urine RBC Less than 1 Urine WBC 1 Urine Mucus Few H Micro UA Comment Culture not ind Ur Microscopic Review Not Reportable Urine Culture Comments Culture not ind - Imaging Imaging: ITS Impressions Abdomen/Pelvis CT 08/13/18 10:48 CONCLUSION: 1. There is a changed, indeterminate mass posteriorly in the right upper quadrant adjacent to the liver that I believe is intraperitoneal. Etiology is uncertain. Malignancy is not excludable. 2. No acute renal abnormality demonstrated. There are no stones or obstructive uropathy seen. 3. Splenomegaly, slightly worse. 4. Tiny right pleural effusion. 5. Unchanged right middle lobe pulmonary nodule. CT scan - abdomen: image reviewed Assessment and Plan - Plan 72 year old male with new RUQ mass visualized on CT scan -Plan for outpatient CT guided biopsy since patient last took Plavix yesterday morning -Regular diet -Will follow up pathology and be available if needed -GS clear for DC Discussed Condition With: Dr. Anthony Martinez Mr. Johnson - Attending Attestation I certify and attest that I personally examined the patient. FISCAL SERVICES MANAGER documented our visit. Retroperitoneal mass seen on previous CT scans and now enlarging. Needs biopsy. Pt currently on Plavix. Will need to hold Plavix and reschedule as outpatient. Ok to DC JOHN WARNER MD FACS
[2018-08-13] MEDS: amLODIPine 5 MG Tablet PO SCH ×2 (17:00→22:45)
[2018-08-13] MEDS: Ramipril 2.5 MG Capsule PO SCH (17:49)
[2018-08-13] MEDS: oxyCODONE/Acetaminophen 10/325 Tablet PO PRN (18:25)
[2018-08-13] MEDS ORDERED: Sodium Chloride 0.9% 2 ML Flush BID IV.FLUSH SCH (21:00)
[2018-08-13] MEDS ORDERED: Temazepam 15 MG Capsule PO PRN (21:00)
[2018-08-13] MEDS: Senna/Docusate Sodium 8.6/50 MG Tablet PO SCH (22:35)
[2018-08-14] MEDS: oxyCODONE/Acetaminophen 10/325 Tablet PO PRN ×2 (01:21→07:34)
[2018-08-14 05:24] LABS: Baso % (Auto) 0.5 % (0.0-2.0); Eos # (Auto) 0.1 th/mm3 (0.0-0.4); Hematocrit 42.1 % (39.0-51.0); Hemoglobin 14.5 gm/dL (13.0-17.0); Lymph # (Auto) 1.2 th/mm3 (1.0-4.8); Mean Corpuscular HGB Conc 34.3 % (32.0-36.0); Mean Corpuscular Hemoglobin 30.9 pg (27.0-34.0); Mean Corpuscular Volume 89.9 fL (80.0-100.0); Mean Platelet Volume 7.5 fL (7.0-11.0); Mono # (Auto) 0.6 th/mm3 (0.0-0.9); Mono % (Auto) 11.8 % (0.0-8.0); Neut # (Auto) 3.4 th/mm3 (1.8-7.7); Neut % (Auto) 63.7 % (16.0-70.0); Platelet Count 197 th/mm3 (150-450); Red Blood Count 4.68 mil/mm3 (4.50-5.90); Red Cell Distribution Width 15.1 % (11.6-17.2); White Blood Count 5.4 th/mm3 (4.0-11.0)
[2018-08-14 05:55] LABS: Alanine Aminotransferase 47 U/L (12-78); Albumin 3.3 g/dL (3.4-5.0); Alkaline Phosphatase 84 U/L (45-117); Anion Gap 6 meq/L (5-15); Aspartate Aminotransferase 40 U/L (15-37); Blood Urea Nitrogen 12 mg/dL (7-18); Calcium 8.6 mg/dL (8.5-10.1); Carbon Dioxide 29.5 meq/L (21.0-32.0); Chloride 106 meq/L (98-107); Glomerular Filtration Rate Greater Than 89 mL/min (>89); Glucose,Random 93 mg/dL (74-106); Lipase 74 U/L (73-393); Potassium 4.1 meq/L (3.5-5.1); Sodium 141 meq/L (136-145); Total Protein 6.7 g/dL (6.4-8.2)
[2018-08-14 07:22] VITALS: RESP 16
[2018-08-14] MEDS: amLODIPine 5 MG Tablet PO SCH (08:27)
[2018-08-14] MEDS: Senna/Docusate Sodium 8.6/50 MG Tablet PO SCH (08:27)
[2018-08-14] MEDS: Ramipril 2.5 MG Capsule PO SCH (08:27)
[2018-08-14] MEDS ORDERED: FLUoxetine 20 MG Capsule PO SCH (09:00)
[2018-08-14 10:57] LABS: INR 1.2 Ratio; Prothrombin Time 12.1 sec (9.8-11.6)
[2018-08-14 11:33] VITALS: BP 128/63; PULSE 54; TEMP 98.7; O2SAT 93
--- NOTE | 2018-08-14 12:30 | P.PNIM ---
Subjective Interval history: f/u for abdominal pain Abdominal pain still present but better, about 5/10, no nausea or vomiting, tolerating diet, passing gas. Afebrile. Seen by surgery. Physical Exam Vital signs: Vital Signs 08/13/18 20:15 08/13/18 23:59 08/14/18 03:34 Temperature 98.0 F 97.9 F Pulse Rate 60 54 L 47 L Respiratory Rate 16 18 20 Blood Pressure 127/84 141/73 H 127/64 Pulse Oximetry 94 L 93 L 92 L 08/14/18 07:21 08/14/18 11:30 Temperature 98.4 F 98.7 F Pulse Rate 50 L 54 L Respiratory Rate 16 16 Blood Pressure 126/72 128/63 Pulse Oximetry 95 93 L Intake & Output 08/13/18 08/14/18 08/14/18 18:59 06:59 18:59 Intake Total 1000 / 1000 Balance 1000 / 1000 Weight 81.647 kg Intake: IV 1000 / 1000 NS Inj 1,000 ML @ 125 mls/hr IV 1000 / 1000 .CONT .Q8H [facility] Rx#:[id number] Other: # Voids 1 Date of Last Bowel Movement 08/13/18 08/13/18 Narrative: Not in distress, looks stated age, in pain. PERRL, pink conjunctiva without injection, anicteric Normal rate and regular rhythm, no murmurs gallops or rubs appreciated. Clear to auscultation and symmetric bilaterally, normal respiratory effort. Normal bowel sounds, soft, mild tenderness right upper quadrant and epigastric area, no guarding. Extremities without clubbing, cyanosis, or edema. No rash of generalized distribution. Skin is warm and dry. AAO x3, no cranial nerve deficits, moves all 4 extremities, no focal neurologic deficits Results Labs CBC & Chem 7: 08/14/18 05:00 08/14/18 05:00 Imaging Imaging: Impressions Abdomen/Pelvis CT 08/13/18 10:48 CONCLUSION: 1. There is a changed, indeterminate mass posteriorly in the right upper quadrant adjacent to the liver that I believe is intraperitoneal. Etiology is uncertain. Malignancy is not excludable. 2. No acute renal abnormality demonstrated. There are no stones or obstructive uropathy seen. 3. Splenomegaly, slightly worse. 4. Tiny right pleural effusion. 5. Unchanged right middle lobe pulmonary nodule. Assessment and Plan Plan This is a 72-year-old male with history of coronary artery disease, recent gallstone pancreatitis status post cholecystectomy on June 19, 2018, complicated by urinary obstruction which has resolved. Patient presented at emergency department for right upper quadrant pain. CT scan of the abdomen showed an indeterminate mass. Right upper quadrant pain-could be from extruded gallstone versus abscess/ infection versus mass. CT scan of the abdomen showed a new indeterminate mass, right upper quadrant adjacent to the liver, about 4.8 cm in largest diameter, no etiology, malignancy cannot be excluded. Doubt malignancy due to rapid growth. LFTs normal, lipase is normal, no leukocytosis, urinalysis unremarkable. Labs today still normal. Seen by Dr. Cruz, recommendation is CT -guided biopsy as outpatient. Good urine output. Discharged on Percocet orally and follow-up with Dr. Cruz. Hold aspirin and Plavix on discharge. Right middle lobe pulmonary [id number] as outpatient Coronary artery disease-continue statins, hold aspirin and Plavix in anticipation for surgery. Last stent placed 14 years ago. Hypertension-continue Norvasc and ADAM inhibitors. Discharge patient to home Condition on discharge: Improved Regular Diet as tolerated Ad Danae activity Rx written: Percocet 10/325 mg every 6 hours as needed #18 Follow-up with Dr. Cruz Progress Note: Quality VTE Deep Vein Thrombosis/Pulmonary Embolism Present on Admission: No
[2018-08-14] MEDS: Morphine Inj 4 MG/ML Vial IV.PUSH PRN (12:56)
== END 2018-08-14 14:20 | disposition home or self-care (01) ==
LOC: NEPB 08:15 → NEDA 13:50 → INTOOBSV 13:50 → NEPGCP 21:16
PROVIDERS: ADMIT Hospitalist; ATTEND Hospitalist
DX: R91.1 Solitary pulmonary nodule; R16.1 Splenomegaly, not elsewhere classified; Z79.899 Other long term (current) drug therapy; Z79.82 Long term (current) use of aspirin; I25.10 Atherosclerotic heart disease of native coronary artery without angina pectoris; I10 Essential (primary) hypertension; Z95.5 Presence of coronary angioplasty implant and graft; Z79.02 Long term (current) use of antithrombotics/antiplatelets; R10.11 Right upper quadrant pain; I25.2 Old myocardial infarction
CPT/HCPCS: 74176; 80053; 81001; 83690; 85025; 85610; 90774; 90775; 90784; 96361; 96374; 96375; 96376; 99285; C8952; G0378; J2270; J2405; J7030